=== PATIENT | female | born 1975 | race Caucasian/White ===

== ENCOUNTER 2018-01-17 01:14 | Observation (INO) ==
[2018-01-17] MEDS ORDERED: 0.9 % Sodium Chloride 1,000 ML IVC ONE (01:44)
[2018-01-17] MEDS ORDERED: methylPREDNISolone 125 MG/2 ML VIAL IVP ONE ×2 (01:44→08:21)
[2018-01-17] MEDS ORDERED: Ipratropium/Albuterol Neb 3 ML IH ONE ×2 (01:44→06:51)
--- NOTE | 2018-01-17 02:02 | Emergency Department Note ---
Disposition Clinical Impression: Acute exacerbation of chronic obstructive pulmonary disease (COPD), Hypoxia Disposition: Admitted As Inpatient Condition: Fair Referrals: Mary Erickson CNP [Primary Care Provider] - Forms: ED Satisfaction Letter Time of Disposition: 07:04 SOB HPI - General Chief Complaint: ED Upper Respiratory Infection Stated Complaint: Dyspnea, cough, fever onset 2 days Time Seen by Provider: 01/17/18 01:40 Source: patient, EMS Mode of arrival: EMS Limitations: no limitations Nursing Notes Reviewed: Yes Vital Signs Reviewed: Yes - History of Present Illness Pt Subjective Complaint: shortness of breath, cough Onset (ago): day(s) (4 days) Severity: severe Consistency/Duration: constant, gradually worsening Improves with: nothing Worsens with: exertion, coughing Known history of: COPD, other (Continues to smoke) Associated symptoms: Reports: fever (Subjective, has not checked with a thermometer), wheezing, sputum production (Minimal yellow sputum) Treatment prior to arrival: bronchodilator Cough present: Yes Cough Description: Involuntary Cough Frequency: Intermittent Sputum production: Yes Sputum Amount: Scant - Related Data Home oxygen amount: none Home Medications Medication Instructions Recorded Confirmed Megestrol Acetate [Megace] 5 ml PO BID 09/07/15 01/17/18 Albuterol Neb [Proventil Neb] 2.5 mg IH Q4HR PRN 01/17/18 01/17/18 Albuterol Sulfate [Albuterol 1 puff IH Q6H PRN 01/17/18 01/17/18 Inhaler] Azathioprine [Imuran] 50 mg PO DAILY 01/17/18 01/17/18 Beclomethasone Diprop 80mcg [Qvar 1 puff IH DAILY 01/17/18 01/17/18 80 mcg] Beclomethasone Diprop 80mcg [Qvar 1 puff IH DAILY 01/17/18 01/17/18 80 mcg] Trospium Chloride 20 mg PO HS 01/17/18 01/17/18 Allergies Allergy/AdvReac Type Severity Reaction Status Date / Time Paroxetine [From Paxil] AdvReac Swelling Verified 01/17/18 03:03 of Lip/Tongue/Throat All systems ED: reviewed and negative except as stated. Constitutional: Reports: fever, chills ENT ED: Reports: congestion. Denies: ear pain, throat pain Cardiovascular: Denies: chest pain, palpitations Respiratory: Reports: cough, dyspnea, wheezes Gastrointestinal: Denies: abdominal pain, nausea, vomiting Musculoskeletal: Denies: back pain Integumentary: Denies: rash Neurological: Denies: headache Past Medical History - Past Medical History Attestation: Yes The following information was validated with the patient. Source: patient, old records reviewed, nursing notes reviewed Medical history: Reports: GERD, COPD Psychiatric history: Reports: anxiety, depression - Social History Smoking Status: Current every day smoker Smokeless Tobacco Status: No Alcohol use: Reports: none Drug use: Reports: none Physical Exam - General Limitations: no limitations General appearance: alert, in no apparent distress - Head Head exam: atraumatic, normocephalic, normal inspection - Eye Eye exam: Present: normal appearance, PERRL, EOMI. Absent: scleral icterus, conjunctival injection - ENT ENT exam: normal exam, normal oropharynx, mucous membranes moist, TM's normal bilaterally, normal external ear exam - Neck Neck exam: Present: normal inspection, full ROM, trachea midline. Absent: meningismus - Chest Chest inspection: Present: normal inspection, symmetric chest wall rise. Absent : tenderness - Respiratory Respiratory exam: Present: respiratory distress (Tachypneic with frequent cough) , wheezes (Throughout both lung jha) - Cardiovascular Cardiovascular exam: Present: normal rhythm, tachycardia, normal heart sounds - Abdominal Exam Abdominal exam: Present: soft, Non-Tender, normal bowel sounds - Extremities Exam Extremities exam: Present: normal inspection. Absent: pedal edema, calf tenderness - Neurological Exam Neurological exam: Present: alert, oriented X3 - Psychiatric Psychiatric exam: Present: normal affect, normal mood - Skin Skin exam: Present: warm, dry. Absent: rash Course Course Narrative: Patient presents with shortness of breath and cough. She has history of COPD and continues to smoke. This looks like a COPD exacerbation. We will do a chest x-ray to make sure there is really is not a pneumonia. I ordered breathing treatments and steroids and fluids. Disposition will be based on diagnostic results and reevaluation. - Reevaluation(s) Reevaluation #1: Labs look good and chest x-ray was clear. ABG showed a low PO2 despite patient being on supplemental oxygen. We have monitored her for couple of hours the emergency department and she continues to cough and has the oxygen requirement and therefore that she is going need to be admitted to the hospital. I have given her antibiotics and steroids and went to give her some more DuoNeb treatments. Hospitalist has been paged. Time: 07:02 - Consultations Consultation #1: Dr. Sánchez, hospitalist - I discussed the case with the hospitalist. We discussed the presentation and emergency department course and diagnostic results. He accepted the patient for admission to the hospital. Time: 07:24 Vital Signs O2 Sat by Pulse Oximetry 92 01/17/18 01:15 Temperature 99.5 F 01/17/18 03:45 Pulse Rate 111 01/17/18 07:07 Respiratory Rate 20 01/17/18 07:07 Blood Pressure 120/70 01/17/18 07:07 O2 Sat by Pulse Oximetry 95 01/17/18 07:07 Oxygen Delivery Oxygen Delivery Nasal Cannula Shortness of Breath/Dyspnea - Medical Records Medical records reviewed: Yes I reviewed the patient's medical records. - Lab Data Lab results reviewed: Yes I reviewed the patient's lab results. Result diagrams: 01/17/18 02:09 01/17/18 02:09 Lab Results 01/17/18 01/17/18 01/17/18 Range/Units 02:09 02:09 02:09 WBC 12.4 H (4.3-11.1) K/mcL RBC 4.36 (3.82-4.97) M/mcL Hgb 14.9 (11.5-15.4) g/dL Hct 44.4 (35.3-44.9) % MCV 101.8 H (83.0-100.0) fL MCH 34.2 H (28.0-33.3) pg MCHC 33.6 (31.6-35.5) g/dL RDW 14.9 H (11.5-14.5) % Plt Count 148 (140-400) K/mcL MPV 11.7 (9.4-12.4) fL Immature Gran % 0.5 (0-4) % Seg Neutrophils % 87.5 % Lymphocytes % 5.0 % Monocytes % 6.4 % Eosinophils % 0.2 % Basophils % 0.4 % Neutrophils # 10.9 H (1.6-8.9) K/mcL Lymphocytes # 0.6 (0.6-4.6) K/mcL Monocytes # 0.8 (0.0-1.3) K/mcL Eosinophils # 0.0 (0.0-0.6) K/mcL Basophils # 0.1 (0.0-0.2) K/mcL Platelet Estimate Normal (Normal) Anisocytosis 1+ A (Not Present) PT 13.4 H (9.4-12.1) Seconds INR 1.2 APTT 26.8 (26.0-36.0) Seconds D-Dimer 314 (0-500) ng/mLFEU Sample Site ABG pH (7.32-7.45) pH Units ABG pCO2 (35-45) mmHg ABG pO2 (85-104) mmHg ABG HCO3 (21-27) mEq/L ABG Total CO2 (20-26) mEq/L ABG O2 Saturation (95-98) % ABG Base Excess (-2 to 3) mEq/L Lam Test O2 Delivery Device Inspired O2 (1-15=lpm [id number]=%) Sodium 133 L (136-145) mEq/L Potassium 3.7 (3.5-5.1) mEq/L Chloride 101 (98-107) mEq/L Carbon Dioxide 23 (23-29) mEq/L BUN 7 (6-20) mg/dL Creatinine 0.61 (0.60-1.20) mg/dL Est GFR ( Amer) > 60 (> 60) Est GFR (Non-Af Amer) > 60 (> 60) BUN/Creatinine Ratio 11 (6-26) Glucose 113 H (70-105) mg/dL Calculated Osmolality 275 L (280-300) Calcium 9.6 (8.6-10.3) mg/dL Troponin I (< 0.04) ng/mL 01/17/18 01/17/18 Range/Units 02:09 03:16 WBC (4.3-11.1) K/mcL RBC (3.82-4.97) M/mcL Hgb (11.5-15.4) g/dL Hct (35.3-44.9) % MCV (83.0-100.0) fL MCH (28.0-33.3) pg MCHC (31.6-35.5) g/dL RDW (11.5-14.5) % Plt Count (140-400) K/mcL MPV (9.4-12.4) fL Immature Gran % (0-4) % Seg Neutrophils % % Lymphocytes % % Monocytes % % Eosinophils % % Basophils % % Neutrophils # (1.6-8.9) K/mcL Lymphocytes # (0.6-4.6) K/mcL Monocytes # (0.0-1.3) K/mcL Eosinophils # (0.0-0.6) K/mcL Basophils # (0.0-0.2) K/mcL Platelet Estimate (Normal) Anisocytosis (Not Present) PT (9.4-12.1) Seconds INR APTT (26.0-36.0) Seconds D-Dimer (0-500) ng/mLFEU Sample Site R Radial ABG pH 7.40 (7.32-7.45) pH Units ABG pCO2 30 L (35-45) mmHg ABG pO2 63 L (85-104) mmHg ABG HCO3 19 L (21-27) mEq/L ABG Total CO2 20 (20-26) mEq/L ABG O2 Saturation 92 L (95-98) % ABG Base Excess -5 L (-2 to 3) mEq/L Lam Test Positive O2 Delivery Device Cannula Inspired O2 2.0 (1-15=lpm [id number]=%) Sodium (136-145) mEq/L Potassium (3.5-5.1) mEq/L Chloride (98-107) mEq/L Carbon Dioxide (23-29) mEq/L BUN (6-20) mg/dL Creatinine (0.60-1.20) mg/dL Est GFR ( Amer) (> 60) Est GFR (Non-Af Amer) (> 60) BUN/Creatinine Ratio (6-26) Glucose (70-105) mg/dL Calculated Osmolality (280-300) Calcium (8.6-10.3) mg/dL Troponin I < 0.03 (< 0.04) ng/mL - Radiology Data Radiology results reviewed: Yes I reviewed the patient's radiology results. - EKG Data EKG attestation: Yes I reviewed and interpreted this EKG. EKG results narrative: Twelve-lead EKG performed at 1:22 AM shows a sinus tachycardia at a rate of 120. The computer is reading it as SVT but is actually sinus tachycardia. Normal axis. Good R-wave progression across the precordium. No acute ischemic changes. There is an incomplete right bundle branch block, otherwise intervals are normal.
[2018-01-17 02:27] LABS: Basophils # 0.1 K/mcL (0.0-0.2); Basophils % 0.4 %; Eosinophils % 0.2 %; Hematocrit 44.4 % (35.3-44.9); Hemoglobin 14.9 g/dL (11.5-15.4); Immature Granulocytes % 0.5 % (0-4); Lymphocytes # 0.6 K/mcL (0.6-4.6); Mean Corpuscular HGB Conc 33.6 g/dL (31.6-35.5); Mean Corpuscular Hemoglobin 34.2 pg (28.0-33.3); Mean Corpuscular Volume 101.8 fL (83.0-100.0); Mean Platelet Volume 11.7 fL (9.4-12.4); Monocytes # 0.8 K/mcL (0.0-1.3); Monocytes % 6.4 %; Neutrophils # 10.9 K/mcL (1.6-8.9); Platelet Count 148 K/mcL (140-400); Red Blood Count 4.36 M/mcL (3.82-4.97); Red Cell Distribution Width 14.9 % (11.5-14.5); Segmented Neutrophils % 87.5 %
[2018-01-17 02:42] LABS: BUN/Creatinine Ratio 11 (6-26); Blood Urea Nitrogen 7 mg/dL (6-20); Calcium 9.6 mg/dL (8.6-10.3); Carbon Dioxide 23 mEq/L (23-29); Chloride 101 mEq/L (98-107); Glucose 113 mg/dL (70-105); Osmolality,Calculated 275 (280-300); Potassium 3.7 mEq/L (3.5-5.1); Sodium 133 mEq/L (136-145); eGFR For African Americans > 60 (> 60); eGFR For Non-African Americans > 60 (> 60)
[2018-01-17 02:56] LABS: INR 1.2; Prothrombin Time 13.4 Seconds (9.4-12.1)
[2018-01-17] MEDS ORDERED: Levofloxacin 750 MG/150 ML 750 MG/150 ML BAG IVPB ONE (02:56)
[2018-01-17] MEDS ORDERED: Ketorolac 30 MG/ML VIAL IVP ONE (02:56)
[2018-01-17 02:58] LABS: Activated Partial Thrombo Time 26.8 Seconds (26.0-36.0)
[2018-01-17 03:07] LABS: Anisocytosis 1+ (Not Present); Platelet Estimate Normal (Normal)
[2018-01-17 03:22] LABS: ABG Base Excess -5 mEq/L (-2 to 3); ABG HCO3 19 mEq/L (21-27); ABG Oxygen Saturation 92 % (95-98); ABG PCO2 30 mmHg (35-45); ABG PO2 63 mmHg (85-104); ABG TCO2 20 mEq/L (20-26)
[2018-01-17] MEDS ORDERED: MethylPREDNISolone 40 MG/ML VIAL IVP ONE (07:08)
[2018-01-17] MEDS ORDERED: 0.9 % Sodium Chloride 1,000 ML IVC SCH ×2 (07:15→08:21)
[2018-01-17] MEDS ORDERED: Ipratropium/Albuterol Neb 3 ML IH SCH ×3 (08:00→12:00)
[2018-01-17] MEDS ORDERED: Naloxone 0.4 MG/ML INJ IVP PRN (08:21)
[2018-01-17] MEDS ORDERED: Megestrol Acetate 400 MG/10 ML UDC PO SCH (09:00)
[2018-01-17] MEDS: Megestrol Acetate 400 MG/10 ML UDC PO SCH ×2 (09:35→20:01)
--- NOTE | 2018-01-17 12:04 | Internal Med History&Physical ---
Date of Encounter: 01/17/18 Time of Encounter: 11:40 Assessment and Plan (1) Acute exacerbation of chronic obstructive pulmonary disease (COPD) Current visit: Yes Status: Acute She was given Levaquin and Solu-Medrol in emergency room. Will continue these and add lactobacillus. (2) Macrocytosis without anemia Current visit: Yes Status: Acute We will order B12, folate, and TSH. (3) Hypoxia Current visit: Yes Status: Acute We will check room air oximetry. Internal Medicine - H&P: HPI Chief complaint: Dyspnea Admitted From: Emergency Dept Plans for Post Hospital Care: Home History of present illness: Ms. Mcknight is a 42 year old female who came to emergency room stating she had onset of dyspnea approximately 3 days previously. She had cough productive of yellow sputum. She denies hemoptysis. She had back pain which she attributes to significant cough. She became more dyspneic the evening of January 16 so came to emergency room. She was evaluated and admitted to [facility] floor for ongoing care needs. Respiratory history is significant for having smoked since age 10 up to one half packs per day. She reports PFTs done approximately 2013 showed COPD. She does not use home oxygen. Past Med Surg Social Fam HX - Past Medical History Medical history: COPD, GERD, other Additional medical history: crohns Psychiatric history: anxiety, depression - Past Surgical History Additional surgical history: colon resection for crohns - Social History Smoking Status: Current every day smoker Smokeless Tobacco Status: No Alcohol use: none Drug use: none - Family History Mother Living Status: Age at : 65 Cause of : Breast Ca Hx Family Cancer: Yes (Breast) Hx Family Endocrine Disorder: Yes (DM) Father Living Status: Age at : 72 Cause of : prostate ca Hx Family Cancer: Yes (Prostate) Hx Family Endocrine Disorder: Yes (DM) Internal Medicine - H&P: Meds Megestrol Acetate [Megace] 5 ml PO BID 09/07/15 [History] Albuterol Neb [Proventil Neb] 2.5 mg IH Q4HR PRN 01/17/18 [History] Albuterol Sulfate [Albuterol Inhaler] 1 puff IH Q6H PRN 01/17/18 [History] Azathioprine [Imuran] 50 mg PO DAILY 01/17/18 [History] Beclomethasone Diprop 80mcg [Qvar 80 mcg] 1 puff IH DAILY 01/17/18 [History] Beclomethasone Diprop 80mcg [Qvar 80 mcg] 1 puff IH DAILY 01/17/18 [History] Trospium Chloride 20 mg PO HS 01/17/18 [History] 3 Allergy/AdvReac Type Severity Reaction Status Date / Time Paroxetine [From Paxil] AdvReac Swelling Verified 01/17/18 03:03 of Lip/Tongue/Throat All Systems PM: A 10-system review of systems was performed and is negative for pertinent findings except as documented above in the HPI. Review of systems: Gen.: She states her weight is stable the past few months Cardiovascular: She denies hypertension AL heart failure angina DVT or pulmonary embolus Respiratory: As per history of present illness GI: She was diagnosed with Crohn's disease approximately 2009. She reports a segmental small bowel resection approximately 6.5 inches with primary anastomosis. She follows with psychiatric lpn at [facility]. She denies disorders of her liver gallbladder or exocrine pancreas : She denies hematuria dysuria or kidney stones Neurologic: She denies large distribution strokes or seizures. Endocrine: She denies diabetes thyroid disease or hyperlipidemia Hematology/oncology: She denies blood disorders cancers or anemia Psychiatric: She has anxiety and depression but denies other mental health issues [place] skeletal: She has restless leg syndrome. She has back pain as per above. She denies gout or other bone joint or muscle disorders. - Constitutional Vitals: Temp Pulse Resp BP Pulse Ox 98.2 F 94 16 107/63 97 01/17/18 10:29 01/17/18 10:29 01/17/18 10:29 01/17/18 10:29 01/17/18 10:29 Exam: Gen.: She is a well-developed lean female who appears in no acute distress at present time HEENT: Head is atraumatic and normal cephalic. Eyes: EOMI. There is no scleral icterus. Mouth: Mucosa is moist. Neck: Supple and nontender. There is no thyromegaly or adenopathy noted. Heart: Regular without murmurs gallops or ectopics Lungs: No wheezes or crackles are heard. Abdomen: Soft and nontender. No masses or guarding are noted. Extremities: There is no cyanosis edema or clubbing noted. Dorsalis pedis posterior tibial pulses are 1-2 over 2 bilaterally. Neurologic: Mental status: She is talkative and a good historian. Cranial nerves: Smile is symmetric. Forehead wrinkles bilaterally. Tongue protrudes midline. EOMI. Motor: There is no pronator drift. Cerebellar: Finger to nose is intact bilaterally. Skin: Warm and dry Internal Med - H&P Results - Labs CBC & Chem 7: 01/17/18 02:09 01/17/18 02:09 - VTE Documentation of Mechanical Device: Graduated compression elastic hosiery
[2018-01-17] MEDS ORDERED: Albuterol 2.5 MG/3 ML NEBULIZER IH PRN (12:09)
[2018-01-17] MEDS: Budesonide/Formoterol 160/4.5 MDI IH SCH ×2 (12:42→21:47)
[2018-01-17] MEDS: Lactobacillus 1 EACH CAP.SPRINK PO SCH (20:02)
[2018-01-17] MEDS ORDERED: Budesonide/Formoterol 160/4.5 MDI IH SCH (22:00)
[2018-01-18] MEDS ORDERED: Levofloxacin 750 MG/150 ML 750 MG/150 ML BAG IVPB SCH ×2 (03:00)
[2018-01-18 04:57] LABS: Basophils % 0.2 %; Hematocrit 40.9 % (35.3-44.9); Hemoglobin 13.7 g/dL (11.5-15.4); Immature Granulocytes % 0.9 % (0-4); Lymphocytes % 5.4 %; Mean Corpuscular HGB Conc 33.5 g/dL (31.6-35.5); Mean Corpuscular Hemoglobin 34.2 pg (28.0-33.3); Mean Platelet Volume 9.9 fL (9.4-12.4); Monocytes # 1.9 K/mcL (0.0-1.3); Monocytes % 13.4 %; Neutrophils # 11.1 K/mcL (1.6-8.9); Platelet Count 214 K/mcL (140-400); Red Blood Count 4.01 M/mcL (3.82-4.97); Segmented Neutrophils % 80.1 %
[2018-01-18 05:07] LABS: Lymphocytes # 0.8 K/mcL (0.6-4.6)
[2018-01-18] MEDS: Lactobacillus 1 EACH CAP.SPRINK PO SCH (08:01)
[2018-01-18] MEDS: Megestrol Acetate 400 MG/10 ML UDC PO SCH (08:02)
[2018-01-18] MEDS: Budesonide/Formoterol 160/4.5 MDI IH SCH (10:36)
[2018-01-18 10:37] VITALS: BP 119/80
[2018-01-18 11:16] LABS: Folate 14.2 ng/mL (3.0-16.0)
--- NOTE | 2018-01-18 14:45 | Discharge Summary ---
Date of Encounter: 01/18/18 Time of Encounter: 14:35 - Discharge Diagnosis (1) Acute exacerbation of chronic obstructive pulmonary disease (COPD) Priority: Primary Status: Acute (2) Macrocytosis without anemia Priority: Secondary Status: Acute (3) Hypoxia Priority: Secondary Status: Acute Hospital course: Ms. Mcknight is a 42 year old female who came to emergency room stating she had onset of dyspnea approximately 3 days previously. She had cough productive of yellow sputum. She denies hemoptysis. She had back pain which she attributes to significant cough. She became more dyspneic the evening of January 16 so came to emergency room. She was evaluated and admitted to [facility] for ongoing care needs. Initial orders were written by the emergency room physician. I saw her on January 17 and performed a history and physical. She was given Levaquin and Solu- Medrol in emergency room. Lactobacillus was added. She remained afebrile during her hospital stay. She had clinical improvement and felt near her baseline breathing when I saw her on January 18. She felt stable for discharge home which I felt was reasonable. She will continue with antibiotic and probiotic for 5 additional days at discharge. Room air oximetry on 6 minute walk showed oxygen saturation decreasing to 87% after 1 minute. Supplemental oxygen was reapplied for patient's safety and comfort. She will be discharged home with oxygen at 2 L/m by nasal cannula 24/ with portable gas and concentrator. Discharge diagnosis is COPD with hypoxemia. Macrocytosis workup showed B12 low at 188. Folate was normal at 14.2 and TSH normal at 0.86. She will be given 1000 g B12 injection IM before discharge and will continue supplemental oral B12 at discharge. She will follow with Mary Erickson CNP within 1 week. I told the patient that recovery from bronchitis and discontinuing smoking might allow her lungs to improve enough so she would not require oxygen 24/7. - Time Spent with Patient Total time spent providing and/or coordinating discharge services: - Discharge Medications Prescriptions: Cyanocobalamin (B-12) [Vitamin B12] 1,000 mcg PO DAILY #30 tablet Lactobacillus [Culturelle] 1 each PO BID #10 cap.sprink levoFLOXacin [Levaquin] 500 mg PO DAILY #5 tablet Home Medications: Megestrol Acetate [Megace] 5 ml PO BID 09/07/15 [History] Albuterol Neb [Proventil Neb] 2.5 mg IH Q4HR PRN 01/17/18 [History] Albuterol Sulfate [Albuterol Inhaler] 1 puff IH Q6H PRN 01/17/18 [History] Azathioprine [Imuran] 50 mg PO DAILY 01/17/18 [History] Beclomethasone Diprop 80mcg [QVAR 80 mcg] 1 puff IH DAILY 01/17/18 [History] Beclomethasone Diprop 80mcg [QVAR 80 mcg] 1 puff IH DAILY 01/17/18 [History] Trospium Chloride 20 mg PO HS 01/17/18 [History] Cyanocobalamin (B-12) [Vitamin B12] 1,000 mcg PO DAILY #30 tablet 01/18/18 [Rx] Lactobacillus [Culturelle] 1 each PO BID #10 cap.sprink 01/18/18 [Rx] levoFLOXacin [Levaquin] 500 mg PO DAILY #5 tablet 01/18/18 [Rx] Allergies/Adverse Reactions: 3 Allergy/AdvReac Type Severity Reaction Status Date / Time Paroxetine [From Paxil] AdvReac Swelling Verified 01/17/18 03:03 of Lip/Tongue/Throat Date of admission: 01/17/18 08:10 Primary care physician: Mary Erickson Consults: 01/17/18 09:51 Consult to Rug Weaver [CONS] Routine Reason for SW Consult: Currently no home o2. May need on DC - Constitutional Vitals: Temp Pulse Resp BP Pulse Ox 98.2 F 82 18 119/80 94 01/18/18 10:26 01/18/18 10:26 01/18/18 10:36 01/18/18 10:26 01/18/18 10:36 - Patient Status Disposition: Home, Self-Care Condition: Fair Overall status at discharge: patient is progressing back to baseline - Discharge Instructions Follow Up With: Mary Erickson, CHRISTIANE [Primary Care Provider] - 1 week - Diet and Activity Activity: resume usual activities as tolerated, wear oxygen at all times Diet: advance to your usual diet - VTE Documentation of Mechanical Device: Graduated compression elastic hosiery
[2018-01-18] MEDS ORDERED: Cyanocobalamin (B-12) 1,000 MCG/ML VIAL IM ONE (14:52)
--- NOTE | 2018-01-20 06:46 | Electrocardiograph Report ---
[address] [place], [place] [address] Test Date: 2018-01-17 Pat Name: Jennifer Mcknight Department: 9201 Room: [facility] Gender: F Molding Manager: Andree : 1975 Requested By: Shashi Davis Order Number: [id number] Reading MD: Jain Saenz Measurements Intervals [place] Rate: 120 P: VT: 0 QRS: 61 QRSD: 92 T: 60 QT: 288 QTc: 359 Interpretive Statements SINUS TACHYCARDIA INDETERMINATE AXIS INCOMPLETE RIGHT BUNDLE BRANCH BLOCK Electronically Signed On 01-20-2018 6:44:53 EDT by Jian Saenz
--- NOTE | 2018-01-20 06:47 | Electrocardiograph Report ---
[address] [place], [place] [address] Test Date: 2018-01-17 Pat Name: Jennifer Mcknight Department: 9201 Room: [facility] Gender: F Card Hanger: Andree : 1975 Requested By: Shashi Davis Order Number: [id number] Reading MD: Jian Saenz Measurements Intervals [place] Rate: 119 P: [place]: 0 QRS: 79 QRSD: 98 T: 60 QT: 310 QTc: 381 Interpretive Statements SUPRAVENTRICULAR TACHYCARDIA INCOMPLETE RIGHT BUNDLE BRANCH BLOCK Electronically Signed On 01-20-2018 6:46:13 EDT by Jian Saenz
== END 2018-01-18 17:08 | disposition home or self-care (01) ==
LOC: EMEROOPIK 01:14 → INPPIK 01:14
PROVIDERS: ADMIT Internal Medicine; ATTEND Internal Medicine

== ENCOUNTER 2019-12-11 20:15 | Observation (INO) ==
[2019-12-11] MEDS ORDERED: Ipratropium/Albuterol Neb 3 ML IH ONE (20:24)
[2019-12-11 21:18] LABS: Basophils # 0.1 K/mcL (0.0-0.2); Basophils % 0.7 %; Eosinophils # 0.3 K/mcL (0.0-0.6); Eosinophils % 4.3 %; Hematocrit 46.2 % (35.3-44.9); Hemoglobin 15.6 g/dL (11.5-15.4); Immature Granulocytes % 0.3 % (0-4); Lymphocytes # 2.3 K/mcL (0.6-4.6); Lymphocytes % 34.5 %; Mean Corpuscular HGB Conc 33.8 g/dL (31.6-35.5); Mean Corpuscular Hemoglobin 33.2 pg (28.0-33.3); Mean Corpuscular Volume 98.3 fL (83.0-100.0); Mean Platelet Volume 10.9 fL (9.4-12.4); Monocytes # 0.9 K/mcL (0.0-1.3); Monocytes % 13.5 %; Neutrophils # 3.2 K/mcL (1.6-8.9); Platelet Count 215 K/mcL (140-400); Red Cell Distribution Width 14.2 % (11.5-14.5); Segmented Neutrophils % 46.7 %; White Blood Count 6.8 K/mcL (4.3-11.1)
[2019-12-11 21:22] LABS: Prothrombin Time 11.5 Seconds (9.4-12.1)
[2019-12-11 21:31] LABS: Alanine Aminotransferase 48 Units/L (7-52); Albumin 4.3 g/dL (3.5-5.7); Albumin/Globulin Ratio 1.7 (1.1-2.2); Alkaline Phosphatase 56 Units/L (34-104); Aspartate Amino Transferase 25 Units/L (13-39); BUN/Creatinine Ratio 21 (6-26); Bilirubin,Total 0.2 mg/dL (0.3-1.0); Blood Urea Nitrogen 14 mg/dL (6-20); Calcium 9.4 mg/dL (8.6-10.3); Carbon Dioxide 29 mEq/L (23-29); Chloride 103 mEq/L (98-107); Globulin 2.5 g/dL (2.4-3.5); Glucose 94 mg/dL (70-105); Osmolality,Calculated 292 (280-300); Potassium 3.6 mEq/L (3.5-5.1); Sodium 141 mEq/L (136-145); Total Protein 6.8 g/dL (6.4-8.9); eGFR For African Americans > 60 (> 60); eGFR For Non-African Americans > 60 (> 60)
[2019-12-11 21:33] LABS: Troponin I < 0.03 ng/mL (< 0.04)
[2019-12-11] MEDS ORDERED: methylPREDNISolone 125 MG/2 ML VIAL IVP ONE (21:47)
[2019-12-11] MEDS ORDERED: cefTRIAXone 1,000 MG in 0.9 % Sodium Chloride Mini Bag 100 ML IVPB ONE (21:47)
[2019-12-11] MEDS ORDERED: Azithromycin 500 MG in 0.9 % Sodium Chloride 250 ML IVPB ONE (21:47)
[2019-12-11] MEDS ORDERED: Ketorolac 30 MG/ML VIAL IVP ONE (22:36)
[2019-12-11] MEDS ORDERED: Naloxone 0.4 MG/ML INJ IVP PRN (23:05)
[2019-12-12] MEDS: Ipratropium/Albuterol Neb 3 ML IH SCH ×6 (00:50→20:30)
[2019-12-12 05:40] LABS: Basophils % 0.3 %; Eosinophils % 0.2 %; Hematocrit 45.2 % (35.3-44.9); Hemoglobin 15.2 g/dL (11.5-15.4); Immature Granulocytes % 0.5 % (0-4); Lymphocytes # 0.5 K/mcL (0.6-4.6); Lymphocytes % 8.8 %; Mean Corpuscular HGB Conc 33.6 g/dL (31.6-35.5); Mean Corpuscular Volume 98.3 fL (83.0-100.0); Mean Platelet Volume 10.3 fL (9.4-12.4); Monocytes # 0.1 K/mcL (0.0-1.3); Neutrophils # 5.5 K/mcL (1.6-8.9); Platelet Count 203 K/mcL (140-400); Red Cell Distribution Width 14.2 % (11.5-14.5); Segmented Neutrophils % 89.2 %; White Blood Count 6.1 K/mcL (4.3-11.1)
[2019-12-12 05:59] LABS: BUN/Creatinine Ratio 22 (6-26); Blood Urea Nitrogen 13 mg/dL (6-20); Calcium 9.1 mg/dL (8.6-10.3); Carbon Dioxide 26 mEq/L (23-29); Chloride 104 mEq/L (98-107); Glucose 158 mg/dL (70-105); Osmolality,Calculated 295 (280-300); Sodium 141 mEq/L (136-145); eGFR For African Americans > 60 (> 60); eGFR For Non-African Americans > 60 (> 60)
[2019-12-12] MEDS ORDERED: Nicotine 14 MG PATCH.TD24 TD SCH (07:45)
[2019-12-12] MEDS ORDERED: Tiotropium 18 MCG inhalation IH SCH (09:00)
[2019-12-12] MEDS ORDERED: Megestrol Acetate 400 MG/10 ML UDC PO SCH (09:00)
[2019-12-12] MEDS: MethylPREDNISolone 40 MG/ML VIAL IVP SCH ×3 (09:33→23:35)
[2019-12-12] MEDS: Colchicine 0.6 MG TABLET PO SCH ×2 (09:49→20:47)
[2019-12-12] MEDS ORDERED: Nitroglycerin 0.4 MG TAB.SUBL SL PRN (13:10)
[2019-12-12] MEDS: Ibuprofen 800 MG TABLET PO SCH ×2 (16:19→23:35)
[2019-12-13] MEDS: Ipratropium/Albuterol Neb 3 ML IH SCH ×4 (00:41→12:00)
[2019-12-13 07:07] VITALS: BP 120/73
[2019-12-13 07:43] LABS: Basophils % 0.1 %; Hematocrit 40.9 % (35.3-44.9); Hemoglobin 13.7 g/dL (11.5-15.4); Immature Granulocytes % 0.6 % (0-4); Lymphocytes # 0.7 K/mcL (0.6-4.6); Lymphocytes % 3.4 %; Mean Corpuscular HGB Conc 33.5 g/dL (31.6-35.5); Mean Corpuscular Hemoglobin 33.3 pg (28.0-33.3); Mean Corpuscular Volume 99.3 fL (83.0-100.0); Mean Platelet Volume 10.3 fL (9.4-12.4); Monocytes # 1.1 K/mcL (0.0-1.3); Monocytes % 5.5 %; Neutrophils # 18.1 K/mcL (1.6-8.9); Platelet Count 212 K/mcL (140-400); Red Blood Count 4.12 M/mcL (3.82-4.97); Red Cell Distribution Width 14.5 % (11.5-14.5); Segmented Neutrophils % 90.4 %
[2019-12-13 07:55] LABS: BUN/Creatinine Ratio 32 (6-26); Blood Urea Nitrogen 17 mg/dL (6-20); Carbon Dioxide 27 mEq/L (23-29); Chloride 107 mEq/L (98-107); Glucose 139 mg/dL (70-105); Osmolality,Calculated 292 (280-300); Potassium 4.8 mEq/L (3.5-5.1); Sodium 139 mEq/L (136-145); eGFR For African Americans > 60 (> 60); eGFR For Non-African Americans > 60 (> 60)
[2019-12-13 08:21] LABS: Albumin 3.7 g/dL (3.5-5.7); Albumin/Globulin Ratio 1.7 (1.1-2.2); Bilirubin,Indirect 0.2 mg/dL (0.0-1.0); Bilirubin,Total 0.2 mg/dL (0.3-1.0); Chol/HDL Ratio 2.4 (0-4.9); Globulin 2.2 g/dL (2.4-3.5); Total Protein 5.9 g/dL (6.4-8.9)
[2019-12-13] MEDS: Ibuprofen 800 MG TABLET PO SCH (09:06)
[2019-12-13] MEDS: MethylPREDNISolone 40 MG/ML VIAL IVP SCH (09:07)
[2019-12-13] MEDS: Colchicine 0.6 MG TABLET PO SCH (09:07)
== END 2019-12-13 11:35 | disposition home or self-care (01) ==
LOC: EMEROOPIK 20:15 → INPPIK 20:15
PROVIDERS: ADMIT Student in an Organized Health Care Education/Training Program; ATTEND Student in an Organized Health Care Education/Training Program

== ENCOUNTER 2020-02-09 20:28 | Observation (INO) ==
[2020-02-09] MEDS ORDERED: methylPREDNISolone 125 MG/2 ML VIAL IVP ONE (20:36)
[2020-02-09] MEDS ORDERED: Ipratropium/Albuterol Neb 3 ML IH ONE (20:36)
[2020-02-09 20:54] LABS: Basophils # 0.1 K/mcL (0.0-0.2); Basophils % 0.4 %; Eosinophils # 0.2 K/mcL (0.0-0.6); Eosinophils % 1.4 %; Hematocrit 44.8 % (35.3-44.9); Hemoglobin 14.6 g/dL (11.5-15.4); Immature Granulocytes % 0.5 % (0-4); Lymphocytes # 2.7 K/mcL (0.6-4.6); Lymphocytes % 16.3 %; Mean Corpuscular HGB Conc 32.6 g/dL (31.6-35.5); Mean Corpuscular Hemoglobin 32.2 pg (28.0-33.3); Mean Corpuscular Volume 98.7 fL (83.0-100.0); Mean Platelet Volume 9.6 fL (9.4-12.4); Monocytes # 2.3 K/mcL (0.0-1.3); Monocytes % 13.6 %; Neutrophils # 11.3 K/mcL (1.6-8.9); Platelet Count 269 K/mcL (140-400); Red Blood Count 4.54 M/mcL (3.82-4.97); Red Cell Distribution Width 14.1 % (11.5-14.5); Segmented Neutrophils % 67.8 %; White Blood Count 16.7 K/mcL (4.3-11.1)
[2020-02-09 21:06] LABS: INR 1.1; Prothrombin Time 12.3 Seconds (9.4-12.1)
[2020-02-09 21:17] LABS: Troponin I < 0.03 ng/mL (< 0.04)
[2020-02-09 21:18] LABS: Alanine Aminotransferase 11 Units/L (7-52); Albumin 3.9 g/dL (3.5-5.7); Albumin/Globulin Ratio 1.2 (1.1-2.2); Alkaline Phosphatase 49 Units/L (34-104); Aspartate Amino Transferase 11 Units/L (13-39); BUN/Creatinine Ratio 12 (6-26); Bilirubin,Total 0.5 mg/dL (0.3-1.0); Blood Urea Nitrogen 6 mg/dL (6-20); Calcium 9.5 mg/dL (8.6-10.3); Carbon Dioxide 28 mEq/L (23-29); Chloride 101 mEq/L (98-107); Globulin 3.2 g/dL (2.4-3.5); Glucose 94 mg/dL (70-105); Magnesium 1.7 mg/dL (1.6-2.6); Osmolality,Calculated 287 (280-300); Potassium 3.8 mEq/L (3.5-5.1); Sodium 140 mEq/L (136-145); Total Protein 7.1 g/dL (6.4-8.9); eGFR For African Americans > 60 (> 60); eGFR For Non-African Americans > 60 (> 60)
[2020-02-09] MEDS ORDERED: cefTRIAXone 1,000 MG in 0.9 % Sodium Chloride Mini Bag 100 ML IVPB ONE (21:49)
[2020-02-09] MEDS ORDERED: Ketorolac 30 MG/ML VIAL IVP ONE (21:49)
[2020-02-09] MEDS ORDERED: Ondansetron 4 MG/2 ML VIAL IVP PRN (23:29)
[2020-02-09] MEDS ORDERED: Naloxone 0.4 MG/ML INJ IVP PRN (23:29)
[2020-02-10 00:25] LABS: Hematocrit 42.9 % (35.3-44.9); Hemoglobin 14.2 g/dL (11.5-15.4); Mean Corpuscular HGB Conc 33.1 g/dL (31.6-35.5); Mean Corpuscular Hemoglobin 32.5 pg (28.0-33.3); Mean Corpuscular Volume 98.2 fL (83.0-100.0); Mean Platelet Volume 9.8 fL (9.4-12.4); Platelet Count 256 K/mcL (140-400); Red Blood Count 4.37 M/mcL (3.82-4.97); White Blood Count 16.8 K/mcL (4.3-11.1)
[2020-02-10] MEDS: 0.9 % Sodium Chloride 1,000 ML IVC SCH ×2 (00:43→14:43)
[2020-02-10] MEDS: Ipratropium/Albuterol Neb 3 ML IH SCH ×8 (01:10→23:10)
[2020-02-10] MEDS: Tiotropium 18 MCG inhalation IH SCH (07:35)
[2020-02-10 07:51] LABS: BUN/Creatinine Ratio 18 (6-26); Blood Urea Nitrogen 11 mg/dL (6-20); Calcium 8.8 mg/dL (8.6-10.3); Carbon Dioxide 27 mEq/L (23-29); Chloride 102 mEq/L (98-107); Glucose 182 mg/dL (70-105); Osmolality,Calculated 288 (280-300); Potassium 4.4 mEq/L (3.5-5.1); Sodium 137 mEq/L (136-145); eGFR For African Americans > 60 (> 60); eGFR For Non-African Americans > 60 (> 60)
[2020-02-10] MEDS: Metoprolol XL (24 HR) Succ 25 MG TAB.ER.24H PO SCH (08:59)
[2020-02-10] MEDS: Megestrol Acetate 400 MG/10 ML UDC PO SCH ×2 (08:59→21:10)
[2020-02-10] MEDS: methylPREDNISolone 125 MG/2 ML VIAL IVP SCH ×3 (09:00→23:55)
[2020-02-10] MEDS: levoFLOXacin 500 MG/100 ML 500 MG/100 ML BAG IVPB SCH (09:01)
[2020-02-11] MEDS: Ipratropium/Albuterol Neb 3 ML IH SCH ×4 (04:36→16:58)
[2020-02-11] MEDS: Tiotropium 18 MCG inhalation IH SCH (08:28)
[2020-02-11] MEDS: Metoprolol XL (24 HR) Succ 25 MG TAB.ER.24H PO SCH (08:45)
[2020-02-11] MEDS: Megestrol Acetate 400 MG/10 ML UDC PO SCH (08:45)
[2020-02-11] MEDS: levoFLOXacin 500 MG/100 ML 500 MG/100 ML BAG IVPB SCH (08:45)
[2020-02-11] MEDS: methylPREDNISolone 125 MG/2 ML VIAL IVP SCH (08:46)
[2020-02-11 08:53] LABS: Hematocrit 37.4 % (35.3-44.9); Hemoglobin 12.1 g/dL (11.5-15.4); Mean Corpuscular HGB Conc 32.4 g/dL (31.6-35.5); Mean Corpuscular Hemoglobin 32.6 pg (28.0-33.3); Mean Corpuscular Volume 100.8 fL (83.0-100.0); Mean Platelet Volume 10.6 fL (9.4-12.4); Platelet Count 244 K/mcL (140-400); Red Blood Count 3.71 M/mcL (3.82-4.97); Red Cell Distribution Width 13.4 % (11.5-14.5)
[2020-02-11 09:24] LABS: Alanine Aminotransferase 12 Units/L (7-52); Albumin 3.2 g/dL (3.5-5.7); Albumin/Globulin Ratio 1.2 (1.1-2.2); Alkaline Phosphatase 42 Units/L (34-104); Aspartate Amino Transferase 11 Units/L (13-39); BUN/Creatinine Ratio 22 (6-26); Bilirubin,Total 0.3 mg/dL (0.3-1.0); Blood Urea Nitrogen 10 mg/dL (6-20); Calcium 8.9 mg/dL (8.6-10.3); Carbon Dioxide 27 mEq/L (23-29); Chloride 102 mEq/L (98-107); Chol/HDL Ratio 2.2 (0-4.9); Cholesterol 98 mg/dL (< 200); Globulin 2.6 g/dL (2.4-3.5); Glucose 118 mg/dL (70-105); HDL Cholesterol 45 mg/dL (40-59); LDL Cholesterol,Calculated 42 mg/dL (< 100); Osmolality,Calculated 286 (280-300); Potassium 4.4 mEq/L (3.5-5.1); Sodium 138 mEq/L (136-145); Total Protein 5.8 g/dL (6.4-8.9); Triglycerides 53 mg/dL (< 150); eGFR For African Americans > 60 (> 60); eGFR For Non-African Americans > 60 (> 60)
[2020-02-11 10:37] VITALS: BP 96/62
[2020-02-11 10:54] LABS: Bilirubin,Urine Negative (Negative); Blood,Urine Trace-intact (Negative); Clarity,Urine Clear (Clear); Color,Urine Yellow (Yellow); Glucose,Urine (UA) Normal (Normal); Ketones,Urine Negative (Negative); Leukocyte Esterase,Urine Negative (Negative); Nitrite,Urine Negative (Negative); PH,Urine 6.5 pH Units (5.0-8.0); Protein,Urine Negative (Neg-Trace); Urobilinogen,Urine Normal (Normal)
[2020-02-11 11:10] LABS: RBC,Urine 0-3 per hpf (0-3); Squamous Epithelial Cell,Urine Few per hpf (None-Few); WBC,Urine 0-3 per hpf (0-3)
== END 2020-02-11 14:35 | disposition home or self-care (01) ==
LOC: INPPIK 20:28 → EMEROOPIK 20:28 → INPPIK 23:10
PROVIDERS: ADMIT Family Medicine; ATTEND Family Medicine

== ENCOUNTER 2020-03-01 00:48 | Observation (INO) ==
[2020-03-01] MEDS ORDERED: Aspirin 81 MG TAB.CHEW PO ONE (00:59)
[2020-03-01] MEDS ORDERED: 0.9 % Sodium Chloride 1,000 ML IVC SCH (01:00)
[2020-03-01] MEDS ORDERED: Ipratropium/Albuterol Neb 3 ML IH ONE (01:17)
[2020-03-01 01:38] LABS: Basophils % 0.2 %; Eosinophils # 0.1 K/mcL (0.0-0.6); Eosinophils % 1.1 %; Hematocrit 37.3 % (35.3-44.9); Hemoglobin 12.3 g/dL (11.5-15.4); Immature Granulocytes % 0.4 % (0-4); Lymphocytes # 1.8 K/mcL (0.6-4.6); Lymphocytes % 15.8 %; Mean Corpuscular Hemoglobin 32.7 pg (28.0-33.3); Mean Corpuscular Volume 99.2 fL (83.0-100.0); Mean Platelet Volume 9.6 fL (9.4-12.4); Monocytes # 1.2 K/mcL (0.0-1.3); Monocytes % 10.7 %; Platelet Count 272 K/mcL (140-400); Red Blood Count 3.76 M/mcL (3.82-4.97); Red Cell Distribution Width 13.4 % (11.5-14.5); Segmented Neutrophils % 71.8 %; White Blood Count 11.6 K/mcL (4.3-11.1)
[2020-03-01 01:42] LABS: INR 1.2; Neutrophils # 8.3 K/mcL (1.6-8.9); Prothrombin Time 13.1 Seconds (9.4-12.1)
[2020-03-01 01:45] LABS: Activated Partial Thrombo Time 40.5 Seconds (26.0-36.0)
[2020-03-01] MEDS ORDERED: *HR* OxyCODONE Immed Rel 5 MG TABLET PO ONE (01:53)
[2020-03-01 01:55] LABS: Troponin I < 0.03 ng/mL (< 0.04)
[2020-03-01 01:56] LABS: Alanine Aminotransferase 13 Units/L (7-52); Albumin 4.2 g/dL (3.5-5.7); Albumin/Globulin Ratio 1.3 (1.1-2.2); Alkaline Phosphatase 56 Units/L (34-104); Aspartate Amino Transferase 15 Units/L (13-39); BUN/Creatinine Ratio 23 (6-26); Bilirubin,Total 0.4 mg/dL (0.3-1.0); Blood Urea Nitrogen 12 mg/dL (6-20); Calcium 9.6 mg/dL (8.6-10.3); Carbon Dioxide 30 mEq/L (23-29); Chloride 102 mEq/L (98-107); Globulin 3.2 g/dL (2.4-3.5); Glucose 106 mg/dL (70-105); Osmolality,Calculated 294 (280-300); Potassium 3.6 mEq/L (3.5-5.1); Sodium 142 mEq/L (136-145); Total Protein 7.4 g/dL (6.4-8.9); eGFR For African Americans > 60 (> 60); eGFR For Non-African Americans > 60 (> 60)
[2020-03-01] MEDS ORDERED: levoFLOXacin 500 MG/100 ML 500 MG/100 ML BAG IVPB ONE (02:39)
[2020-03-01] MEDS ORDERED: methylPREDNISolone 125 MG/2 ML VIAL IVP ONE (02:39)
[2020-03-01] MEDS ORDERED: MEDROXYPROGESTERONE ACETATE 150 MG IM SCH (03:31)
[2020-03-01] MEDS ORDERED: Naloxone 0.4 MG/ML INJ IVP PRN (03:31)
[2020-03-01] MEDS ORDERED: *HR* HYDROcodone/Acet 5/325 mg TABLET PO PRN (03:31)
[2020-03-01] MEDS ORDERED: Albuterol Neb 0.63 MG/3 ML VIAL IH PRN (03:31)
[2020-03-01] MEDS: 0.9 % Sodium Chloride 1,000 ML IVC SCH ×3 (04:25→17:50)
[2020-03-01] MEDS: Ipratropium/Albuterol Neb 3 ML IH SCH ×4 (04:56→22:00)
[2020-03-01] MEDS: Aspirin Enteric Coated 81 MG Tablet PO SCH (08:53)
[2020-03-01] MEDS: Metoprolol XL (24 HR) Succ 25 MG TAB.ER.24H PO SCH (08:54)
[2020-03-01] MEDS: Megestrol Acetate 400 MG/10 ML UDC PO SCH ×2 (08:55→20:54)
[2020-03-01] MEDS ORDERED: Tiotropium 18 MCG inhalation IH SCH (09:00)
[2020-03-01] MEDS ORDERED: Albuterol 2.5 MG/3 ML NEBULIZER IH PRN (09:31)
[2020-03-01] MEDS: Nicotine 14 MG PATCH.TD24 TD SCH (10:09)
[2020-03-01] MEDS ORDERED: methylPREDNISolone 125 MG/2 ML VIAL IVP SCH (11:00)
[2020-03-01] MEDS: methylPREDNISolone 125 MG/2 ML VIAL IVP SCH (15:24)
[2020-03-02] MEDS: methylPREDNISolone 125 MG/2 ML VIAL IVP SCH (00:21)
[2020-03-02] MEDS: 0.9 % Sodium Chloride 1,000 ML IVC SCH ×2 (01:15→08:20)
[2020-03-02 05:56] LABS: Basophils % 0.1 %; Hematocrit 33.5 % (35.3-44.9); Hemoglobin 10.8 g/dL (11.5-15.4); Immature Granulocytes % 0.9 % (0-4); Lymphocytes # 0.6 K/mcL (0.6-4.6); Mean Corpuscular HGB Conc 32.2 g/dL (31.6-35.5); Mean Corpuscular Hemoglobin 32.5 pg (28.0-33.3); Mean Corpuscular Volume 100.9 fL (83.0-100.0); Mean Platelet Volume 9.6 fL (9.4-12.4); Monocytes # 0.5 K/mcL (0.0-1.3); Monocytes % 3.3 %; Neutrophils # 13.9 K/mcL (1.6-8.9); Platelet Count 280 K/mcL (140-400); Red Blood Count 3.32 M/mcL (3.82-4.97); Red Cell Distribution Width 13.3 % (11.5-14.5); Segmented Neutrophils % 91.7 %; White Blood Count 15.2 K/mcL (4.3-11.1)
[2020-03-02] MEDS: Ipratropium/Albuterol Neb 3 ML IH SCH ×2 (05:57→10:35)
[2020-03-02 06:09] LABS: BUN/Creatinine Ratio 29 (6-26); Blood Urea Nitrogen 12 mg/dL (6-20); Calcium 8.9 mg/dL (8.6-10.3); Carbon Dioxide 26 mEq/L (23-29); Chloride 107 mEq/L (98-107); Glucose 166 mg/dL (70-105); Osmolality,Calculated 296 (280-300); Potassium 4.3 mEq/L (3.5-5.1); Sodium 141 mEq/L (136-145); eGFR For African Americans > 60 (> 60); eGFR For Non-African Americans > 60 (> 60)
[2020-03-02 06:32] VITALS: BP 104/68
[2020-03-02] MEDS ORDERED: MethylPREDNISolone 40 MG/ML VIAL IVP SCH (08:00)
[2020-03-02] MEDS: Megestrol Acetate 400 MG/10 ML UDC PO SCH (08:22)
[2020-03-02] MEDS: Aspirin Enteric Coated 81 MG Tablet PO SCH (08:24)
[2020-03-02] MEDS: Nicotine 14 MG PATCH.TD24 TD SCH (08:24)
[2020-03-02] MEDS: Metoprolol XL (24 HR) Succ 25 MG TAB.ER.24H PO SCH (08:24)
[2020-03-02] MEDS ORDERED: levoFLOXacin 500 MG/100 ML 500 MG/100 ML BAG IVPB SCH (09:00)
== END 2020-03-02 10:12 | disposition home or self-care (01) ==
LOC: INPPIK 00:48 → EMEROOPIK 00:48 → INPPIK 03:19
PROVIDERS: ADMIT Family Medicine; ATTEND Family Medicine

== ENCOUNTER 2020-09-21 23:28 | Observation (INO) ==
[2020-09-22] MEDS ORDERED: Ipratropium/Albuterol Neb 3 ML IH ONE
[2020-09-22] MEDS ORDERED: levoFLOXacin 500 MG/100 ML 500 MG/100 ML BAG IVPB ONE
[2020-09-22] MEDS ORDERED: 0.9 % Sodium Chloride 1,000 ML IVC SCH
[2020-09-22] MEDS ORDERED: methylPREDNISolone 125 MG/2 ML VIAL IVP ONE
[2020-09-22 00:32] LABS: Basophils # 0.1 K/mcL (0.0-0.2); Basophils % 0.3 %; Eosinophils # 0.2 K/mcL (0.0-0.6); Hematocrit 41.3 % (35.3-44.9); Hemoglobin 13.7 g/dL (11.5-15.4); Immature Granulocytes % 0.4 % (0-4); Lymphocytes # 1.5 K/mcL (0.6-4.6); Lymphocytes % 9.4 %; Mean Corpuscular HGB Conc 33.2 g/dL (31.6-35.5); Mean Corpuscular Hemoglobin 32.2 pg (28.0-33.3); Mean Corpuscular Volume 97.2 fL (83.0-100.0); Mean Platelet Volume 9.7 fL (9.4-12.4); Monocytes # 1.5 K/mcL (0.0-1.3); Monocytes % 9.8 %; Platelet Count 245 K/mcL (140-400); Red Blood Count 4.25 M/mcL (3.82-4.97); Red Cell Distribution Width 13.1 % (11.5-14.5); Segmented Neutrophils % 79.1 %; White Blood Count 15.4 K/mcL (4.3-11.1)
[2020-09-22 00:38] LABS: Neutrophils # 12.2 K/mcL (1.6-8.9)
[2020-09-22 00:40] LABS: INR 1.2; Prothrombin Time 13.4 Seconds (9.4-12.1)
[2020-09-22 00:42] LABS: Activated Partial Thrombo Time 33.3 Seconds (26.0-36.0)
[2020-09-22 00:51] LABS: Troponin I < 0.03 ng/mL (< 0.04)
[2020-09-22 00:57] LABS: BUN/Creatinine Ratio 19 (6-26); Blood Urea Nitrogen 9 mg/dL (6-20); Calcium 9.4 mg/dL (8.6-10.3); Carbon Dioxide 27 mEq/L (23-29); Chloride 101 mEq/L (98-107); Glucose 119 mg/dL (70-105); Osmolality,Calculated 286 (280-300); Potassium 3.4 mEq/L (3.5-5.1); Sodium 138 mEq/L (136-145); eGFR For African Americans > 60 (> 60); eGFR For Non-African Americans > 60 (> 60)
[2020-09-22] MEDS ORDERED: Potassium Chloride Elixir 20 MEQ/15 ML UDC PO ONE (01:03)
[2020-09-22] MEDS ORDERED: Naloxone 0.4 MG/ML INJ IVP PRN (02:55)
[2020-09-22] MEDS ORDERED: Acetaminophen 325 MG TABLET PO PRN (02:55)
[2020-09-22] MEDS: *HR* HYDROcodone/Acet 5/325 mg TABLET PO PRN ×2 (03:12→19:28)
[2020-09-22] MEDS: 0.9 % Sodium Chloride 1,000 ML IVC SCH ×2 (03:13→10:14)
[2020-09-22] MEDS: Ipratropium/Albuterol Neb 3 ML IH SCH ×2 (04:49→09:04)
[2020-09-22 05:36] LABS: Basophils % 0.1 %; Hematocrit 38.6 % (35.3-44.9); Hemoglobin 12.7 g/dL (11.5-15.4); Immature Granulocytes % 0.6 % (0-4); Lymphocytes # 0.3 K/mcL (0.6-4.6); Mean Corpuscular HGB Conc 32.9 g/dL (31.6-35.5); Mean Corpuscular Volume 97.2 fL (83.0-100.0); Monocytes # 0.2 K/mcL (0.0-1.3); Monocytes % 1.4 %; Neutrophils # 13.8 K/mcL (1.6-8.9); Platelet Count 223 K/mcL (140-400); Red Blood Count 3.97 M/mcL (3.82-4.97); Segmented Neutrophils % 95.9 %; White Blood Count 14.4 K/mcL (4.3-11.1)
[2020-09-22] MEDS ORDERED: MethylPREDNISolone 40 MG/ML VIAL IVP SCH (06:00)
[2020-09-22 06:19] LABS: BUN/Creatinine Ratio 15 (6-26); Blood Urea Nitrogen 7 mg/dL (6-20); Carbon Dioxide 25 mEq/L (23-29); Chloride 105 mEq/L (98-107); Glucose 156 mg/dL (70-105); Magnesium 1.9 mg/dL (1.6-2.6); Osmolality,Calculated 283 (280-300); Phosphorous 2.3 mg/dL (2.7-4.5); Potassium 4.6 mEq/L (3.5-5.1); Sodium 136 mEq/L (136-145); eGFR For African Americans > 60 (> 60); eGFR For Non-African Americans > 60 (> 60)
[2020-09-22] MEDS: Megestrol Acetate 400 MG/10 ML UDC PO SCH ×2 (08:50→19:29)
[2020-09-22] MEDS: Metoprolol XL (24 HR) Succ 25 MG TAB.ER.24H PO SCH (08:51)
[2020-09-22] MEDS: Budesonide/Formoterol 160/4.5 1 PUFF INH IH SCH ×2 (09:57→21:57)
[2020-09-22] MEDS: Tiotropium 10 INH DOSE IH SCH (09:57)
[2020-09-22 12:09] LABS: Bilirubin,Urine Negative (Negative); Blood,Urine Trace-intact (Negative); Clarity,Urine Clear (Clear); Color,Urine Yellow (Yellow); Glucose,Urine (UA) 500 mg/dL (Normal); Ketones,Urine Negative (Negative); Leukocyte Esterase,Urine Negative (Negative); Nitrite,Urine Negative (Negative); PH,Urine 7.5 pH Units (5.0-8.0); Protein,Urine Negative (Neg-Trace); Urobilinogen,Urine Normal (Normal)
[2020-09-22 12:19] LABS: RBC,Urine 0-3 per hpf (0-3); Squamous Epithelial Cell,Urine Few per hpf (None-Few); WBC,Urine 0-3 per hpf (0-3)
[2020-09-22] MEDS ORDERED: levoFLOXacin 500 MG/100 ML 500 MG/100 ML BAG IVPB SCH (23:00)
[2020-09-23 04:48] LABS: Hematocrit 37.5 % (35.3-44.9); Hemoglobin 12.1 g/dL (11.5-15.4); Mean Corpuscular HGB Conc 32.3 g/dL (31.6-35.5); Mean Corpuscular Hemoglobin 32.4 pg (28.0-33.3); Mean Corpuscular Volume 100.3 fL (83.0-100.0); Mean Platelet Volume 9.6 fL (9.4-12.4); Platelet Count 241 K/mcL (140-400); Red Blood Count 3.74 M/mcL (3.82-4.97); White Blood Count 13.2 K/mcL (4.3-11.1)
[2020-09-23 05:04] LABS: BUN/Creatinine Ratio 26 (6-26); Blood Urea Nitrogen 11 mg/dL (6-20); Calcium 8.6 mg/dL (8.6-10.3); Carbon Dioxide 25 mEq/L (23-29); Chloride 107 mEq/L (98-107); Glucose 112 mg/dL (70-105); Osmolality,Calculated 284 (280-300); Potassium 4.3 mEq/L (3.5-5.1); Sodium 137 mEq/L (136-145); eGFR For African Americans > 60 (> 60); eGFR For Non-African Americans > 60 (> 60)
[2020-09-23 08:10] VITALS: BP 109/72
[2020-09-23] MEDS: Megestrol Acetate 400 MG/10 ML UDC PO SCH (08:22)
[2020-09-23] MEDS: Metoprolol XL (24 HR) Succ 25 MG TAB.ER.24H PO SCH (08:32)
[2020-09-23] MEDS: Tiotropium 10 INH DOSE IH SCH (09:18)
[2020-09-23] MEDS: Budesonide/Formoterol 160/4.5 1 PUFF INH IH SCH (09:18)
== END 2020-09-23 10:50 | disposition home or self-care (01) ==
LOC: EMEROOPIK 23:28 → INPPIK 23:28
PROVIDERS: ADMIT Family Medicine; ATTEND Family Medicine

== ENCOUNTER 2020-12-13 20:44 | Observation (INO) ==
[2020-12-13 21:28] LABS: Basophils % 0.3 %; Eosinophils # 0.1 K/mcL (0.0-0.6); Eosinophils % 0.6 %; Hematocrit 43.4 % (35.3-44.9); Hemoglobin 13.9 g/dL (11.5-15.4); Immature Granulocytes % 0.4 % (0-4); Lymphocytes # 1.7 K/mcL (0.6-4.6); Lymphocytes % 13.7 %; Mean Corpuscular Hemoglobin 33.4 pg (28.0-33.3); Mean Corpuscular Volume 104.3 fL (83.0-100.0); Monocytes # 1.1 K/mcL (0.0-1.3); Monocytes % 8.9 %; Platelet Count 230 K/mcL (140-400); Red Blood Count 4.16 M/mcL (3.82-4.97); Red Cell Distribution Width 14.3 % (11.5-14.5); Segmented Neutrophils % 76.1 %; White Blood Count 12.7 K/mcL (4.3-11.1)
[2020-12-13 21:29] LABS: Neutrophils # 9.7 K/mcL (1.6-8.9)
[2020-12-13 21:37] LABS: INR 1.1; Prothrombin Time 12.9 Seconds (9.4-12.1)
[2020-12-13 21:39] LABS: Activated Partial Thrombo Time 34.1 Seconds (26.0-36.0)
[2020-12-13 21:43] LABS: D-Dimer < 215 ng/mLFEU (0-500)
[2020-12-13 21:48] LABS: Alanine Aminotransferase 12 Units/L (7-52); Albumin 4.5 g/dL (3.5-5.7); Albumin/Globulin Ratio 1.8 (1.1-2.2); Alkaline Phosphatase 37 Units/L (34-104); Aspartate Amino Transferase 12 Units/L (13-39); BUN/Creatinine Ratio 21 (6-26); Blood Urea Nitrogen 9 mg/dL (6-20); Calcium 9.7 mg/dL (8.6-10.3); Carbon Dioxide 31 mEq/L (23-29); Chloride 100 mEq/L (98-107); Globulin 2.5 g/dL (2.4-3.5); Glucose 99 mg/dL (70-105); Magnesium 1.9 mg/dL (1.6-2.6); Osmolality,Calculated 285 (280-300); Phosphorous 2.6 mg/dL (2.7-4.5); Potassium 3.4 mEq/L (3.5-5.1); Sodium 138 mEq/L (136-145); Troponin I < 0.03 ng/mL (< 0.04); eGFR For African Americans > 60 (> 60); eGFR For Non-African Americans > 60 (> 60)
[2020-12-13] MEDS ORDERED: Azithromycin 500 MG in 0.9 % Sodium Chloride 250 ML IVPB ONE (22:08)
[2020-12-13] MEDS ORDERED: Ipratropium/Albuterol Neb 3 ML IH ONE (22:08)
[2020-12-13] MEDS ORDERED: cefTRIAXone 1,000 MG in 0.9 % Sodium Chloride Mini Bag 100 ML IVPB ONE (22:27)
[2020-12-13] MEDS ORDERED: Ibuprofen 800 MG TABLET PO ONE (22:45)
[2020-12-13] MEDS ORDERED: Naloxone 0.4 MG/ML INJ IVP PRN (23:22)
[2020-12-13] MEDS ORDERED: 0.9 % Sodium Chloride 1,000 ML IVC SCH (23:22)
[2020-12-14] MEDS: Acetaminophen 325 MG TABLET PO PRN ×3 (01:58→22:20)
[2020-12-14] MEDS: Metoprolol XL (24 HR) Succ 25 MG TAB.ER.24H PO SCH ×2 (01:58→20:53)
[2020-12-14] MEDS: Ipratropium/Albuterol Neb 3 ML IH SCH ×4 (04:05→21:57)
[2020-12-14 05:47] LABS: Basophils % 0.1 %; Hematocrit 41.3 % (35.3-44.9); Immature Granulocytes % 0.3 % (0-4); Lymphocytes # 0.4 K/mcL (0.6-4.6); Lymphocytes % 3.4 %; Mean Corpuscular HGB Conc 31.5 g/dL (31.6-35.5); Mean Corpuscular Volume 104.8 fL (83.0-100.0); Mean Platelet Volume 9.8 fL (9.4-12.4); Monocytes # 0.1 K/mcL (0.0-1.3); Monocytes % 1.1 %; Neutrophils # 10.2 K/mcL (1.6-8.9); Platelet Count 214 K/mcL (140-400); Red Blood Count 3.94 M/mcL (3.82-4.97); Red Cell Distribution Width 14.1 % (11.5-14.5); Segmented Neutrophils % 95.1 %; White Blood Count 10.7 K/mcL (4.3-11.1)
[2020-12-14 06:21] LABS: BUN/Creatinine Ratio 25 (6-26); Blood Urea Nitrogen 13 mg/dL (6-20); Calcium 9.5 mg/dL (8.6-10.3); Carbon Dioxide 33 mEq/L (23-29); Chloride 102 mEq/L (98-107); Glucose 151 mg/dL (70-105); Osmolality,Calculated 293 (280-300); Potassium 4.7 mEq/L (3.5-5.1); Sodium 140 mEq/L (136-145); eGFR For African Americans > 60 (> 60); eGFR For Non-African Americans > 60 (> 60)
[2020-12-14] MEDS: Megestrol Acetate 400 MG/10 ML UDC PO SCH ×2 (08:50→20:52)
[2020-12-14] MEDS ORDERED: cefTRIAXone 1,000 MG in Water for inj. (sterile) 10 ML IVP SCH (09:00)
[2020-12-14] MEDS ORDERED: Metoprolol XL (24 HR) Succ 25 MG TAB.ER.24H PO SCH (09:00)
[2020-12-14] MEDS: MethylPREDNISolone 40 MG/ML VIAL IVP SCH ×2 (09:52→16:21)
[2020-12-14] MEDS: Budesonide/Formoterol 160/4.5 1 PUFF INH IH SCH ×2 (10:43→21:57)
[2020-12-14] MEDS ORDERED: MethylPREDNISolone 40 MG/ML VIAL IVP SCH (16:00)
[2020-12-14] MEDS: Simethicone 80 MG TAB.CHEW PO PRN (18:11)
[2020-12-14] MEDS ORDERED: Nicotine 21 MG PATCH.TD24 TD SCH (23:30)
[2020-12-15] MEDS: MethylPREDNISolone 40 MG/ML VIAL IVP SCH ×3 (00:14→16:05)
[2020-12-15] MEDS: Ipratropium/Albuterol Neb 3 ML IH SCH ×3 (04:14→15:32)
[2020-12-15 07:54] VITALS: BP 105/61
[2020-12-15] MEDS: Megestrol Acetate 400 MG/10 ML UDC PO SCH (08:22)
[2020-12-15] MEDS ORDERED: Ketorolac 15 MG/ML VIAL IVP ONE (08:33)
[2020-12-15 09:20] LABS: Hematocrit 39.4 % (35.3-44.9); Hemoglobin 12.4 g/dL (11.5-15.4); Mean Corpuscular HGB Conc 31.5 g/dL (31.6-35.5); Mean Corpuscular Hemoglobin 33.2 pg (28.0-33.3); Mean Corpuscular Volume 105.3 fL (83.0-100.0); Mean Platelet Volume 10.1 fL (9.4-12.4); Platelet Count 245 K/mcL (140-400); Red Blood Count 3.74 M/mcL (3.82-4.97); Red Cell Distribution Width 14.1 % (11.5-14.5)
[2020-12-15 09:28] LABS: BUN/Creatinine Ratio 31 (6-26); Blood Urea Nitrogen 12 mg/dL (6-20); Calcium 9.3 mg/dL (8.6-10.3); Carbon Dioxide 29 mEq/L (23-29); Chloride 104 mEq/L (98-107); Glucose 134 mg/dL (70-105); Osmolality,Calculated 290 (280-300); Potassium 4.5 mEq/L (3.5-5.1); Sodium 139 mEq/L (136-145); eGFR For African Americans > 60 (> 60); eGFR For Non-African Americans > 60 (> 60)
[2020-12-15] MEDS: Budesonide/Formoterol 160/4.5 1 PUFF INH IH SCH (09:44)
[2020-12-15] MEDS: Simethicone 80 MG TAB.CHEW PO PRN (14:02)
== END 2020-12-15 17:40 | disposition home or self-care (01) ==
LOC: INPPIK 20:44 → EMEROOPIK 20:44 → INPPIK 23:37
PROVIDERS: ADMIT Family Medicine; ATTEND Family Medicine

== ENCOUNTER 2021-10-23 02:08 | Inpatient (IN) ==
[2021-10-23] MEDS ORDERED: methylPREDNISolone 125 MG/2 ML VIAL IVP ONE (03:00)
[2021-10-23 03:17] LABS: Basophils # 0.1 K/mcL (0.0-0.2); Basophils % 0.3 %; Eosinophils % 0.2 %; Hematocrit 44.5 % (35.3-44.9); Hemoglobin 14.1 g/dL (11.5-15.4); Immature Granulocytes % 0.5 % (0-4); Lymphocytes # 1.3 K/mcL (0.6-4.6); Lymphocytes % 8.1 %; Mean Corpuscular HGB Conc 31.7 g/dL (31.6-35.5); Mean Corpuscular Volume 97.8 fL (83.0-100.0); Mean Platelet Volume 11.4 fL (9.4-12.4); Monocytes # 1.3 K/mcL (0.0-1.3); Monocytes % 8.4 %; Neutrophils # 13.2 K/mcL (1.6-8.9); Platelet Count 195 K/mcL (140-400); Red Blood Count 4.55 M/mcL (3.82-4.97); Red Cell Distribution Width 13.6 % (11.5-14.5); Segmented Neutrophils % 82.5 %
[2021-10-23 03:23] LABS: BUN/Creatinine Ratio 27 (6-26); Blood Urea Nitrogen 11 mg/dL (6-20); Calcium 9.8 mg/dL (8.6-10.3); Carbon Dioxide 32 mEq/L (23-29); Chloride 101 mEq/L (98-107); Glucose 122 mg/dL (70-105); Osmolality,Calculated 291 (280-300); Potassium 3.6 mEq/L (3.5-5.1); Sodium 140 mEq/L (136-145); eGFR For African Americans > 60 (> 60); eGFR For Non-African Americans > 60 (> 60)
[2021-10-23 03:24] LABS: Troponin I < 0.03 ng/mL (< 0.04)
[2021-10-23] MEDS ORDERED: levoFLOXacin 750 MG TABLET PO ONE (03:34)
[2021-10-23] MEDS ORDERED: Naloxone 0.4 MG/ML INJ IVP PRN ×2 (05:04→09:10)
[2021-10-23] MEDS: Ipratropium/Albuterol Neb 3 ML IH SCH ×2 (05:15→08:59)
[2021-10-23] MEDS: 0.9 % Sodium Chloride 1,000 ML IVC SCH ×2 (06:39→15:15)
[2021-10-23] MEDS ORDERED: Ipratropium/Albuterol Neb 3 ML IH PRN (09:15)
[2021-10-23] MEDS ORDERED: hydrOXYzine pamoate 25 MG CAPSULE PO PRN (09:19)
[2021-10-23] MEDS ORDERED: Budesonide/Formoterol 160/4.5 1 PUFF INH IH SCH (10:00)
[2021-10-23] MEDS: Budesonide/Formoterol 160/4.5 1 PUFF INH IH SCH ×2 (10:54→21:40)
[2021-10-23] MEDS: Tiotropium 10 INH DOSE IH SCH (10:57)
[2021-10-23] MEDS: MethylPREDNISolone 40 MG/ML VIAL IVP SCH ×2 (16:20→23:49)
[2021-10-23] MEDS: Megestrol Acetate 400 MG/10 ML UDC PO SCH (20:57)
[2021-10-24] MEDS: *HR* Enoxaparin 40 MG/0.4 ML SYRINGE SQ SCH (05:32)
[2021-10-24 07:16] LABS: Basophils % 0.1 %; Hematocrit 42.5 % (35.3-44.9); Hemoglobin 12.9 g/dL (11.5-15.4); Immature Granulocytes % 0.9 % (0-4); Lymphocytes # 0.8 K/mcL (0.6-4.6); Lymphocytes % 4.1 %; Mean Corpuscular HGB Conc 30.4 g/dL (31.6-35.5); Mean Corpuscular Hemoglobin 31.1 pg (28.0-33.3); Mean Corpuscular Volume 102.4 fL (83.0-100.0); Mean Platelet Volume 11.4 fL (9.4-12.4); Neutrophils # 17.1 K/mcL (1.6-8.9); Platelet Count 192 K/mcL (140-400); Red Blood Count 4.15 M/mcL (3.82-4.97); Red Cell Distribution Width 13.4 % (11.5-14.5); Segmented Neutrophils % 89.9 %
[2021-10-24 07:41] LABS: BUN/Creatinine Ratio 23 (6-26); Blood Urea Nitrogen 10 mg/dL (6-20); Calcium 9.4 mg/dL (8.6-10.3); Carbon Dioxide 29 mEq/L (23-29); Chloride 103 mEq/L (98-107); Glucose 128 mg/dL (70-105); Magnesium 1.9 mg/dL (1.6-2.6); Osmolality,Calculated 291 (280-300); Potassium 3.9 mEq/L (3.5-5.1); Sodium 140 mEq/L (136-145); eGFR For African Americans > 60 (> 60); eGFR For Non-African Americans > 60 (> 60)
[2021-10-24] MEDS: Budesonide/Formoterol 160/4.5 1 PUFF INH IH SCH ×2 (08:05→21:05)
[2021-10-24] MEDS: Tiotropium 10 INH DOSE IH SCH (08:07)
[2021-10-24] MEDS: MethylPREDNISolone 40 MG/ML VIAL IVP SCH ×2 (09:08→10:28)
[2021-10-24] MEDS: Megestrol Acetate 400 MG/10 ML UDC PO SCH ×2 (09:09→21:38)
[2021-10-24] MEDS: levoFLOXacin 750 MG/150 ML 750 MG/150 ML BAG IVPB SCH ×2 (09:09→10:27)
[2021-10-24] MEDS: Metoprolol XL (24 HR) Succ 25 MG TAB.ER.24H PO SCH (09:11)
[2021-10-25] MEDS ORDERED: 0.9 % Sodium Chloride 500 ML IVC PRN (01:04)
[2021-10-25] MEDS ORDERED: 0.9 % Sodium Chloride 1,000 ML IVC SCH (01:15)
[2021-10-25] MEDS: *HR* Enoxaparin 40 MG/0.4 ML SYRINGE SQ SCH (05:25)
[2021-10-25 05:55] LABS: Basophils % 0.1 %; Eosinophils % 0.1 %; Hematocrit 39.2 % (35.3-44.9); Hemoglobin 11.8 g/dL (11.5-15.4); Immature Granulocytes % 0.5 % (0-4); Lymphocytes # 1.3 K/mcL (0.6-4.6); Lymphocytes % 8.4 %; Mean Corpuscular HGB Conc 30.1 g/dL (31.6-35.5); Mean Corpuscular Volume 102.9 fL (83.0-100.0); Mean Platelet Volume 10.8 fL (9.4-12.4); Monocytes # 1.5 K/mcL (0.0-1.3); Neutrophils # 12.4 K/mcL (1.6-8.9); Platelet Count 198 K/mcL (140-400); Red Blood Count 3.81 M/mcL (3.82-4.97); Red Cell Distribution Width 13.5 % (11.5-14.5); Segmented Neutrophils % 80.9 %; White Blood Count 15.3 K/mcL (4.3-11.1)
[2021-10-25 06:14] LABS: BUN/Creatinine Ratio 35 (6-26); Blood Urea Nitrogen 18 mg/dL (6-20); Calcium 8.9 mg/dL (8.6-10.3); Carbon Dioxide 30 mEq/L (23-29); Chloride 106 mEq/L (98-107); Glucose 100 mg/dL (70-105); Magnesium 1.8 mg/dL (1.6-2.6); Osmolality,Calculated 292 (280-300); Potassium 4.4 mEq/L (3.5-5.1); Sodium 140 mEq/L (136-145); eGFR For African Americans > 60 (> 60); eGFR For Non-African Americans > 60 (> 60)
[2021-10-25] MEDS: Megestrol Acetate 400 MG/10 ML UDC PO SCH ×2 (08:35→21:27)
[2021-10-25] MEDS: levoFLOXacin 750 MG/150 ML 750 MG/150 ML BAG IVPB SCH (08:37)
[2021-10-25] MEDS: Metoprolol XL (24 HR) Succ 25 MG TAB.ER.24H PO SCH ×2 (08:39→14:09)
[2021-10-25] MEDS: Budesonide/Formoterol 160/4.5 1 PUFF INH IH SCH ×2 (08:55→21:13)
[2021-10-25] MEDS: Tiotropium 10 INH DOSE IH SCH (08:55)
[2021-10-25] MEDS ORDERED: MethylPREDNISolone 40 MG/ML VIAL IVP SCH (09:00)
[2021-10-25] MEDS ORDERED: Benzonatate 100 MG CAPSULE PO PRN (09:20)
[2021-10-25] MEDS: MethylPREDNISolone 40 MG/ML VIAL IVP SCH ×3 (09:52→21:23)
[2021-10-25 14:39] LABS: Adenovirus Not Detected (Not Detect); Bordetella Pertussis Not Detected (Not Detect); Chlamydophila pneumoniae Not Detected (Not Detect); Coronavirus 229E Not Detected (Not Detect); Coronavirus HKU1 Not Detected (Not Detect); Coronavirus NL63 Not Detected (Not Detect); Coronavirus OC43 Not Detected (Not Detect); Human Metapneumovirus Not Detected (Not Detect); Human Rhinovirus/Enterovirus Not Detected (Not Detect); Influenza A Subtype 2009 H1 Not Detected (Not Detect); Influenza B Not Detected (Not Detect); Mycoplasma pneumoniae Not Detected (Not Detect); Parainfluenza Virus 1 Not Detected (Not Detect); Parainfluenza Virus 2 Not Detected (Not Detect); Parainfluenza Virus 3 Not Detected (Not Detect); Parainfluenza Virus 4 Not Detected (Not Detect); Respiratory Syncytial Virus Not Detected (Not Detect); SARS-CoV-2 Not Detected (Not Detect)
[2021-10-25] MEDS: Piperacillin/Tazobactam 3.375 GM in 0.9 % Sodium Chloride Mini Bag 100 ML IVPB SCH (23:59)
[2021-10-26] MEDS: MethylPREDNISolone 40 MG/ML VIAL IVP SCH ×3 (03:45→16:17)
[2021-10-26] MEDS: *HR* Enoxaparin 40 MG/0.4 ML SYRINGE SQ SCH (05:45)
[2021-10-26 07:55] LABS: Basophils % 0.1 %; Hematocrit 40.9 % (35.3-44.9); Hemoglobin 12.6 g/dL (11.5-15.4); Immature Granulocytes % 0.7 % (0-4); Lymphocytes # 0.6 K/mcL (0.6-4.6); Lymphocytes % 5.6 %; Mean Corpuscular HGB Conc 30.8 g/dL (31.6-35.5); Mean Corpuscular Hemoglobin 30.8 pg (28.0-33.3); Mean Platelet Volume 10.4 fL (9.4-12.4); Monocytes # 0.6 K/mcL (0.0-1.3); Monocytes % 5.9 %; Neutrophils # 9.6 K/mcL (1.6-8.9); Platelet Count 230 K/mcL (140-400); Red Blood Count 4.09 M/mcL (3.82-4.97); Red Cell Distribution Width 13.3 % (11.5-14.5); Segmented Neutrophils % 87.7 %; White Blood Count 10.9 K/mcL (4.3-11.1)
[2021-10-26 08:29] LABS: BUN/Creatinine Ratio 29 (6-26); Blood Urea Nitrogen 11 mg/dL (6-20); Calcium 9.3 mg/dL (8.6-10.3); Carbon Dioxide 31 mEq/L (23-29); Chloride 103 mEq/L (98-107); Glucose 121 mg/dL (70-105); Osmolality,Calculated 289 (280-300); Potassium 4.6 mEq/L (3.5-5.1); Sodium 139 mEq/L (136-145); eGFR For African Americans > 60 (> 60); eGFR For Non-African Americans > 60 (> 60)
[2021-10-26] MEDS: Megestrol Acetate 400 MG/10 ML UDC PO SCH ×2 (09:26→21:25)
[2021-10-26] MEDS: Metoprolol XL (24 HR) Succ 25 MG TAB.ER.24H PO SCH (09:27)
[2021-10-26] MEDS: Piperacillin/Tazobactam 3.375 GM in 0.9 % Sodium Chloride Mini Bag 100 ML IVPB SCH ×2 (09:27→16:19)
[2021-10-26] MEDS: Tiotropium 10 INH DOSE IH SCH (09:29)
[2021-10-26] MEDS: Budesonide/Formoterol 160/4.5 1 PUFF INH IH SCH ×2 (09:29→22:10)
[2021-10-27] MEDS: Piperacillin/Tazobactam 3.375 GM in 0.9 % Sodium Chloride Mini Bag 100 ML IVPB SCH ×2 (00:13→10:29)
[2021-10-27] MEDS: MethylPREDNISolone 40 MG/ML VIAL IVP SCH (04:12)
[2021-10-27] MEDS: *HR* Enoxaparin 40 MG/0.4 ML SYRINGE SQ SCH (05:37)
[2021-10-27 06:40] LABS: Basophils % 0.1 %; Hematocrit 39.9 % (35.3-44.9); Hemoglobin 12.3 g/dL (11.5-15.4); Immature Granulocytes % 0.6 % (0-4); Lymphocytes # 0.8 K/mcL (0.6-4.6); Lymphocytes % 7.1 %; Mean Corpuscular HGB Conc 30.8 g/dL (31.6-35.5); Mean Corpuscular Hemoglobin 30.8 pg (28.0-33.3); Mean Platelet Volume 10.4 fL (9.4-12.4); Monocytes # 1.2 K/mcL (0.0-1.3); Neutrophils # 8.7 K/mcL (1.6-8.9); Platelet Count 230 K/mcL (140-400); Red Blood Count 3.99 M/mcL (3.82-4.97); Red Cell Distribution Width 13.4 % (11.5-14.5); Segmented Neutrophils % 81.2 %; White Blood Count 10.8 K/mcL (4.3-11.1)
[2021-10-27 07:02] LABS: BUN/Creatinine Ratio 30 (6-26); Blood Urea Nitrogen 14 mg/dL (6-20); Calcium 8.7 mg/dL (8.6-10.3); Carbon Dioxide 32 mEq/L (23-29); Chloride 103 mEq/L (98-107); Glucose 114 mg/dL (70-105); Osmolality,Calculated 289 (280-300); Potassium 4.3 mEq/L (3.5-5.1); Sodium 139 mEq/L (136-145); eGFR For African Americans > 60 (> 60); eGFR For Non-African Americans > 60 (> 60)
[2021-10-27] MEDS: Metoprolol XL (24 HR) Succ 25 MG TAB.ER.24H PO SCH (10:28)
[2021-10-27] MEDS: Megestrol Acetate 400 MG/10 ML UDC PO SCH (10:28)
[2021-10-27 10:30] VITALS: BP 109/64; PULSE 102; TEMP 97.7; O2SAT 94
[2021-10-27] MEDS: Budesonide/Formoterol 160/4.5 1 PUFF INH IH SCH (10:38)
[2021-10-27] MEDS: Tiotropium 10 INH DOSE IH SCH (10:39)
[2021-10-27 12:46] VITALS: RESP 16
== END 2021-10-27 13:52 | disposition home or self-care (01) | DRG 139 ==
LOC: INPPIK 02:08 → EMEROOPIK 02:08 → INPPIK 06:36
PROVIDERS: ADMIT Family Medicine; ATTEND Family Medicine

== ENCOUNTER 2021-12-26 23:24 | Observation (INO) ==
[2021-12-27] MEDS ORDERED: Naloxone 0.4 MG/ML INJ IVP PRN (09:15)
[2021-12-27] MEDS ORDERED: Benzonatate 100 MG CAPSULE PO PRN (09:16)
[2021-12-27] MEDS ORDERED: hydrOXYzine pamoate 25 MG CAPSULE PO PRN (09:28)
[2021-12-27] MEDS: Budesonide/Formoterol 160/4.5 1 PUFF INH IH SCH ×2 (10:08→22:01)
[2021-12-27 11:17] LABS: Adenovirus Not Detected (Not Detect); Bordetella Pertussis Not Detected (Not Detect); Chlamydophila pneumoniae Not Detected (Not Detect); Coronavirus 229E Not Detected (Not Detect); Coronavirus HKU1 Not Detected (Not Detect); Coronavirus NL63 Not Detected (Not Detect); Coronavirus OC43 Not Detected (Not Detect); Human Metapneumovirus Not Detected (Not Detect); Human Rhinovirus/Enterovirus Not Detected (Not Detect); Influenza A Subtype 2009 H1 Not Detected (Not Detect); Influenza B Not Detected (Not Detect); Mycoplasma pneumoniae Not Detected (Not Detect); Parainfluenza Virus 1 Not Detected (Not Detect); Parainfluenza Virus 2 Not Detected (Not Detect); Parainfluenza Virus 3 Not Detected (Not Detect); Parainfluenza Virus 4 Not Detected (Not Detect); Respiratory Syncytial Virus Not Detected (Not Detect); SARS-CoV-2 Not Detected (Not Detect)
[2021-12-27] MEDS: Azithromycin 250 MG TABLET PO SCH (11:36)
[2021-12-27] MEDS: Metoprolol XL (24 HR) Succ 25 MG TAB.ER.24H PO SCH (11:37)
[2021-12-27] MEDS: MethylPREDNISolone 40 MG/ML VIAL IVP SCH ×2 (11:37→17:14)
[2021-12-27] MEDS: Ipratropium/Albuterol Neb 3 ML IH PRN (17:32)
[2021-12-27] MEDS: Megestrol Acetate 400 MG/10 ML UDC PO SCH (23:10)
[2021-12-28] MEDS: Ipratropium/Albuterol Neb 3 ML IH PRN (00:18)
[2021-12-28] MEDS: MethylPREDNISolone 40 MG/ML VIAL IVP SCH ×3 (01:07→13:25)
[2021-12-28] MEDS ORDERED: *HR* Enoxaparin 40 MG/0.4 ML SYRINGE SQ SCH (06:00)
[2021-12-28 07:35] VITALS: BP 98/65; PULSE 97; TEMP 97.9; O2SAT 95
[2021-12-28 07:59] LABS: Basophils % 0.2 %; Hematocrit 41.2 % (35.3-44.9); Hemoglobin 12.9 g/dL (11.5-15.4); Immature Granulocytes % 0.8 % (0-4); Lymphocytes # 0.8 K/mcL (0.6-4.6); Lymphocytes % 4.3 %; Mean Corpuscular HGB Conc 31.3 g/dL (31.6-35.5); Mean Corpuscular Hemoglobin 31.4 pg (28.0-33.3); Mean Corpuscular Volume 100.2 fL (83.0-100.0); Mean Platelet Volume 10.7 fL (9.4-12.4); Monocytes # 1.2 K/mcL (0.0-1.3); Monocytes % 6.7 %; Neutrophils # 16.3 K/mcL (1.6-8.9); Platelet Count 184 K/mcL (140-400); Red Blood Count 4.11 M/mcL (3.82-4.97); Red Cell Distribution Width 13.8 % (11.5-14.5); White Blood Count 18.5 K/mcL (4.3-11.1)
[2021-12-28 08:25] LABS: BUN/Creatinine Ratio 35 (6-26); Blood Urea Nitrogen 14 mg/dL (6-20); Calcium 9.3 mg/dL (8.6-10.3); Carbon Dioxide 31 mEq/L (23-29); Chloride 105 mEq/L (98-107); Glucose 131 mg/dL (70-105); Magnesium 2.1 mg/dL (1.6-2.6); Osmolality,Calculated 292 (280-300); Potassium 4.7 mEq/L (3.5-5.1); Sodium 140 mEq/L (136-145); eGFR For African Americans > 60 (> 60); eGFR For Non-African Americans > 60 (> 60)
[2021-12-28] MEDS ORDERED: Metoprolol XL (24 HR) Succ 25 MG TAB.ER.24H PO SCH (09:00)
[2021-12-28] MEDS: Megestrol Acetate 400 MG/10 ML UDC PO SCH (09:42)
[2021-12-28] MEDS: Azithromycin 250 MG TABLET PO SCH (09:42)
[2021-12-28] MEDS: Metoprolol XL (24 HR) Succ 25 MG TAB.ER.24H PO SCH (09:43)
[2021-12-28] MEDS: Budesonide/Formoterol 160/4.5 1 PUFF INH IH SCH (10:54)
[2021-12-28 11:00] VITALS: RESP 18
[2021-12-29] MEDS ORDERED: Azithromycin 250 MG TABLET PO SCH (09:00)
== END 2021-12-28 14:25 | disposition home or self-care (01) ==
LOC: INPPIK
PROVIDERS: ADMIT Family Medicine; ATTEND Internal Medicine

== ENCOUNTER 2022-01-05 07:55 | Inpatient (IN) ==
[2022-01-05] MEDS ORDERED: Acetaminophen 325 MG TABLET PO PRN (09:59)
[2022-01-05] MEDS ORDERED: Mag Hydrox/Al Hydrox/Simeth 30 ML UDC PO PRN (09:59)
[2022-01-05] MEDS ORDERED: Ondansetron 4 MG/2 ML VIAL IVP PRN (09:59)
[2022-01-05] MEDS ORDERED: Naloxone 0.4 MG/ML INJ IVP PRN (09:59)
[2022-01-05] MEDS ORDERED: MOM Conc 10 ML UD.LIQ PO PRN (09:59)
[2022-01-05] MEDS ORDERED: MethylPREDNISolone 40 MG/ML VIAL IVP SCH (10:09)
[2022-01-05] MEDS ORDERED: hydrOXYzine pamoate 25 MG CAPSULE PO PRN (10:20)
[2022-01-05] MEDS ORDERED: Tiotropium 10 INH DOSE IH SCH (10:30)
[2022-01-05] MEDS: MethylPREDNISolone 40 MG/ML VIAL IVP SCH ×2 (10:50→21:20)
[2022-01-05] MEDS: Megestrol Acetate 400 MG/10 ML UDC PO SCH ×2 (11:04→21:19)
[2022-01-05] MEDS: Metoprolol XL (24 HR) Succ 25 MG TAB.ER.24H PO SCH (11:04)
[2022-01-05] MEDS: Budesonide/Formoterol 160/4.5 1 PUFF INH IH SCH ×2 (11:06→20:17)
[2022-01-05] MEDS: Ipratropium/Albuterol Neb 3 ML IH SCH ×4 (11:06→23:54)
[2022-01-05] MEDS: levoFLOXacin 500 MG/100 ML 500 MG/100 ML BAG IVPB SCH (16:56)
[2022-01-06] MEDS: Ipratropium/Albuterol Neb 3 ML IH SCH ×5 (04:14→20:14)
[2022-01-06] MEDS: MethylPREDNISolone 40 MG/ML VIAL IVP SCH ×3 (05:04→20:34)
[2022-01-06] MEDS: Budesonide/Formoterol 160/4.5 1 PUFF INH IH SCH ×2 (07:41→20:15)
[2022-01-06 07:50] LABS: Basophils % 0.1 %; Hematocrit 41.6 % (35.3-44.9); Hemoglobin 12.7 g/dL (11.5-15.4); Immature Granulocytes % 0.7 % (0-4); Lymphocytes # 0.4 K/mcL (0.6-4.6); Lymphocytes % 2.6 %; Mean Corpuscular HGB Conc 30.5 g/dL (31.6-35.5); Mean Corpuscular Hemoglobin 31.2 pg (28.0-33.3); Mean Corpuscular Volume 102.2 fL (83.0-100.0); Mean Platelet Volume 9.8 fL (9.4-12.4); Monocytes # 0.5 K/mcL (0.0-1.3); Monocytes % 3.1 %; Neutrophils # 14.3 K/mcL (1.6-8.9); Platelet Count 211 K/mcL (140-400); Red Blood Count 4.07 M/mcL (3.82-4.97); Red Cell Distribution Width 13.4 % (11.5-14.5); Segmented Neutrophils % 93.5 %; White Blood Count 15.3 K/mcL (4.3-11.1)
[2022-01-06 08:09] LABS: BUN/Creatinine Ratio 24 (6-26); Blood Urea Nitrogen 12 mg/dL (6-20); Calcium 9.4 mg/dL (8.6-10.3); Carbon Dioxide 33 mEq/L (23-29); Chloride 101 mEq/L (98-107); Glucose 129 mg/dL (70-105); Osmolality,Calculated 287 (280-300); Potassium 4.8 mEq/L (3.5-5.1); Sodium 138 mEq/L (136-145); eGFR For African Americans > 60 (> 60); eGFR For Non-African Americans > 60 (> 60)
[2022-01-06] MEDS: Metoprolol XL (24 HR) Succ 25 MG TAB.ER.24H PO SCH (08:24)
[2022-01-06] MEDS: Megestrol Acetate 400 MG/10 ML UDC PO SCH ×2 (08:24→20:34)
[2022-01-06] MEDS: levoFLOXacin 500 MG/100 ML 500 MG/100 ML BAG IVPB SCH (15:07)
[2022-01-07] MEDS: Ipratropium/Albuterol Neb 3 ML IH SCH ×7 (00:10→23:35)
[2022-01-07 07:44] LABS: Basophils % 0.1 %; Hematocrit 39.1 % (35.3-44.9); Immature Granulocytes % 0.4 % (0-4); Lymphocytes # 0.7 K/mcL (0.6-4.6); Lymphocytes % 3.7 %; Mean Corpuscular HGB Conc 30.7 g/dL (31.6-35.5); Mean Corpuscular Hemoglobin 31.5 pg (28.0-33.3); Mean Corpuscular Volume 102.6 fL (83.0-100.0); Mean Platelet Volume 9.6 fL (9.4-12.4); Monocytes # 1.1 K/mcL (0.0-1.3); Monocytes % 5.9 %; Neutrophils # 16.4 K/mcL (1.6-8.9); Platelet Count 206 K/mcL (140-400); Red Blood Count 3.81 M/mcL (3.82-4.97); Red Cell Distribution Width 13.5 % (11.5-14.5); Segmented Neutrophils % 89.9 %; White Blood Count 18.2 K/mcL (4.3-11.1)
[2022-01-07] MEDS: Budesonide/Formoterol 160/4.5 1 PUFF INH IH SCH ×2 (07:54→19:57)
[2022-01-07 09:08] LABS: BUN/Creatinine Ratio 33 (6-26); Blood Urea Nitrogen 14 mg/dL (6-20); Calcium 9.2 mg/dL (8.6-10.3); Carbon Dioxide 35 mEq/L (23-29); Chloride 98 mEq/L (98-107); Glucose 105 mg/dL (70-105); Osmolality,Calculated 285 (280-300); Potassium 4.4 mEq/L (3.5-5.1); Sodium 137 mEq/L (136-145); eGFR For African Americans > 60 (> 60); eGFR For Non-African Americans > 60 (> 60)
[2022-01-07] MEDS: Megestrol Acetate 400 MG/10 ML UDC PO SCH ×2 (09:18→21:49)
[2022-01-07] MEDS: MethylPREDNISolone 40 MG/ML VIAL IVP SCH ×2 (09:19→21:50)
[2022-01-07] MEDS: Metoprolol XL (24 HR) Succ 25 MG TAB.ER.24H PO SCH (09:19)
[2022-01-07] MEDS: levoFLOXacin 500 MG/100 ML 500 MG/100 ML BAG IVPB SCH (15:44)
[2022-01-07] MEDS: Melatonin 3 MG TABLET PO PRN (21:49)
[2022-01-08] MEDS: Ipratropium/Albuterol Neb 3 ML IH SCH ×5 (03:32→20:39)
[2022-01-08 07:10] LABS: Hemoglobin 12.1 g/dL (11.5-15.4); Mean Corpuscular Hemoglobin 31.7 pg (28.0-33.3); Mean Corpuscular Volume 102.1 fL (83.0-100.0); Mean Platelet Volume 10.1 fL (9.4-12.4); Platelet Count 202 K/mcL (140-400); Red Blood Count 3.82 M/mcL (3.82-4.97); Red Cell Distribution Width 13.4 % (11.5-14.5); White Blood Count 14.6 K/mcL (4.3-11.1)
[2022-01-08] MEDS: Budesonide/Formoterol 160/4.5 1 PUFF INH IH SCH ×2 (07:42→20:39)
[2022-01-08] MEDS ORDERED: GuaiFENesin/Dextromethorphan TABLET PO PRN (07:50)
[2022-01-08] MEDS: Megestrol Acetate 400 MG/10 ML UDC PO SCH ×2 (07:56→21:08)
[2022-01-08] MEDS: *HR* Enoxaparin 40 MG/0.4 ML SYRINGE SQ SCH (07:56)
[2022-01-08] MEDS: MethylPREDNISolone 40 MG/ML VIAL IVP SCH ×2 (07:57→21:09)
[2022-01-08] MEDS: Metoprolol XL (24 HR) Succ 25 MG TAB.ER.24H PO SCH (07:57)
[2022-01-08 08:07] LABS: BUN/Creatinine Ratio 36 (6-26); Blood Urea Nitrogen 16 mg/dL (6-20); Calcium 9.3 mg/dL (8.6-10.3); Carbon Dioxide 39 mEq/L (23-29); Chloride 97 mEq/L (98-107); Glucose 114 mg/dL (70-105); Osmolality,Calculated 290 (280-300); Potassium 4.5 mEq/L (3.5-5.1); Sodium 139 mEq/L (136-145); eGFR For African Americans > 60 (> 60); eGFR For Non-African Americans > 60 (> 60)
[2022-01-08] MEDS ORDERED: Azithromycin 250 MG TABLET PO SCH (09:00)
[2022-01-08 13:00] LABS: ABG Base Excess 7 mEq/L (-2 to 3); ABG HCO3 35 mEq/L (21-27); ABG Oxygen Saturation 90 % (95-98); ABG PCO2 59 mmHg (35-45); ABG PH 7.38 pH Units (7.32-7.45); ABG PO2 61 mmHg (85-104); ABG TCO2 36 mEq/L (20-26)
[2022-01-08] MEDS: Melatonin 3 MG TABLET PO PRN (21:08)
[2022-01-09] MEDS: Ipratropium/Albuterol Neb 3 ML IH SCH ×6 (00:23→21:15)
[2022-01-09] MEDS: *HR* Enoxaparin 40 MG/0.4 ML SYRINGE SQ SCH (07:51)
[2022-01-09] MEDS: MethylPREDNISolone 40 MG/ML VIAL IVP SCH ×2 (08:58→20:49)
[2022-01-09] MEDS: Megestrol Acetate 400 MG/10 ML UDC PO SCH ×2 (08:58→20:48)
[2022-01-09] MEDS: Metoprolol XL (24 HR) Succ 25 MG TAB.ER.24H PO SCH (08:58)
[2022-01-09] MEDS: Budesonide/Formoterol 160/4.5 1 PUFF INH IH SCH ×2 (09:18→21:14)
[2022-01-09] MEDS: Melatonin 3 MG TABLET PO PRN (20:49)
[2022-01-10] MEDS: Ipratropium/Albuterol Neb 3 ML IH SCH ×4 (01:10→11:05)
[2022-01-10 07:40] VITALS: RESP 18
[2022-01-10] MEDS ORDERED: predniSONE 20 MG TABLET PO SCH (08:00)
[2022-01-10] MEDS: *HR* Enoxaparin 40 MG/0.4 ML SYRINGE SQ SCH (08:12)
[2022-01-10] MEDS: Megestrol Acetate 400 MG/10 ML UDC PO SCH (08:13)
[2022-01-10] MEDS: Metoprolol XL (24 HR) Succ 25 MG TAB.ER.24H PO SCH (08:13)
[2022-01-10] MEDS: Budesonide/Formoterol 160/4.5 1 PUFF INH IH SCH (09:00)
[2022-01-10 10:55] VITALS: BP 95/65; PULSE 95; TEMP 98.5
[2022-01-10 11:10] VITALS: O2SAT 93
== END 2022-01-10 15:31 | disposition home health service (06) | DRG 140 ==
LOC: INPPIK
PROVIDERS: ADMIT Family Medicine; ATTEND Family Medicine

== ENCOUNTER 2022-01-18 01:23 | Observation (INO) ==
[2022-01-18] MEDS ORDERED: Ipratropium/Albuterol Neb 3 ML IH ONE ×3 (01:36→11:57)
[2022-01-18] MEDS ORDERED: methylPREDNISolone 125 MG/2 ML VIAL IVP ONE ×2 (01:37→08:00)
[2022-01-18 02:00] LABS: Basophils # 0.1 K/mcL (0.0-0.2); Basophils % 0.4 %; Eosinophils # 0.3 K/mcL (0.0-0.6); Hematocrit 49.2 % (35.3-44.9); Hemoglobin 15.7 g/dL (11.5-15.4); Immature Granulocytes % 1.3 % (0-4); Lymphocytes # 2.2 K/mcL (0.6-4.6); Lymphocytes % 16.3 %; Mean Corpuscular HGB Conc 31.9 g/dL (31.6-35.5); Mean Corpuscular Hemoglobin 31.7 pg (28.0-33.3); Mean Corpuscular Volume 99.4 fL (83.0-100.0); Mean Platelet Volume 9.7 fL (9.4-12.4); Monocytes # 1.6 K/mcL (0.0-1.3); Monocytes % 11.9 %; Neutrophils # 9.3 K/mcL (1.6-8.9); Platelet Count 281 K/mcL (140-400); Red Blood Count 4.95 M/mcL (3.82-4.97); Red Cell Distribution Width 15.5 % (11.5-14.5); Segmented Neutrophils % 68.1 %; White Blood Count 13.6 K/mcL (4.3-11.1)
[2022-01-18 02:13] LABS: Alanine Aminotransferase 40 Units/L (7-52); Albumin 4.3 g/dL (3.5-5.7); Albumin/Globulin Ratio 1.8 (1.1-2.2); Alkaline Phosphatase 57 Units/L (34-104); Aspartate Amino Transferase 17 Units/L (13-39); BUN/Creatinine Ratio 32 (6-26); Bilirubin,Total 0.5 mg/dL (0.3-1.0); Blood Urea Nitrogen 16 mg/dL (6-20); Calcium 9.5 mg/dL (8.6-10.3); Carbon Dioxide 39 mEq/L (23-29); Chloride 98 mEq/L (98-107); Globulin 2.4 g/dL (2.4-3.5); Glucose 102 mg/dL (70-105); Osmolality,Calculated 297 (280-300); Potassium 3.9 mEq/L (3.5-5.1); Sodium 143 mEq/L (136-145); Total Protein 6.7 g/dL (6.4-8.9); eGFR For African Americans > 60 (> 60); eGFR For Non-African Americans > 60 (> 60)
[2022-01-18] MEDS ORDERED: 0.9 % Sodium Chloride 1,000 ML IVC ONE (02:26)
[2022-01-18] MEDS: 0.9 % Sodium Chloride 1,000 ML IVC SCH (05:15)
[2022-01-18] MEDS ORDERED: Naloxone 0.4 MG/ML INJ IVP PRN (12:49)
[2022-01-18] MEDS ORDERED: Benzonatate 100 MG CAPSULE PO PRN (12:50)
[2022-01-18] MEDS ORDERED: hydrOXYzine pamoate 25 MG CAPSULE PO PRN (12:50)
[2022-01-18] MEDS ORDERED: Perflutren Lipid Microsphere 1.3 ML in 0.9 % Sodium Chloride 8.7 ML IVP PRN (13:57)
[2022-01-18] MEDS: Ipratropium/Albuterol Neb 3 ML IH PRN (18:04)
[2022-01-18] MEDS: Budesonide/Formoterol 160/4.5 1 PUFF INH IH SCH (20:13)
[2022-01-18] MEDS: MethylPREDNISolone 40 MG/ML VIAL IVP SCH (23:10)
[2022-01-19] MEDS: Ipratropium/Albuterol Neb 3 ML IH PRN (00:17)
[2022-01-19 07:16] LABS: Alanine Aminotransferase 35 Units/L (7-52); Albumin 3.4 g/dL (3.5-5.7); Albumin/Globulin Ratio 1.8 (1.1-2.2); Alkaline Phosphatase 50 Units/L (34-104); Aspartate Amino Transferase 16 Units/L (13-39); BUN/Creatinine Ratio 34 (6-26); Bilirubin,Total 0.4 mg/dL (0.3-1.0); Blood Urea Nitrogen 14 mg/dL (6-20); Calcium 8.7 mg/dL (8.6-10.3); Carbon Dioxide 33 mEq/L (23-29); Chloride 106 mEq/L (98-107); Globulin 1.9 g/dL (2.4-3.5); Glucose 134 mg/dL (70-105); Magnesium 2.1 mg/dL (1.6-2.6); Osmolality,Calculated 296 (280-300); Potassium 4.7 mEq/L (3.5-5.1); Sodium 142 mEq/L (136-145); Total Protein 5.3 g/dL (6.4-8.9); eGFR For African Americans > 60 (> 60); eGFR For Non-African Americans > 60 (> 60)
[2022-01-19] MEDS: Tiotropium 10 INH DOSE IH SCH (07:49)
[2022-01-19] MEDS: Budesonide/Formoterol 160/4.5 1 PUFF INH IH SCH ×2 (07:50→20:01)
[2022-01-19] MEDS: Metoprolol XL (24 HR) Succ 25 MG TAB.ER.24H PO SCH (08:03)
[2022-01-19] MEDS ORDERED: 0.9 % Sodium Chloride 1,000 ML IVC SCH (08:15)
[2022-01-19] MEDS: MethylPREDNISolone 40 MG/ML VIAL IVP SCH ×3 (08:34→23:29)
[2022-01-19] MEDS ORDERED: predniSONE 10 MG TABLET PO SCH (09:00)
[2022-01-19] MEDS ORDERED: Azithromycin 250 MG TABLET PO SCH (09:00)
[2022-01-19 11:11] LABS: Basophils % 0.1 %; Hematocrit 40.5 % (35.3-44.9); Hemoglobin 12.6 g/dL (11.5-15.4); Immature Granulocytes % 0.6 % (0-4); Lymphocytes # 0.4 K/mcL (0.6-4.6); Mean Corpuscular HGB Conc 31.1 g/dL (31.6-35.5); Mean Corpuscular Hemoglobin 31.7 pg (28.0-33.3); Mean Corpuscular Volume 101.8 fL (83.0-100.0); Mean Platelet Volume 9.6 fL (9.4-12.4); Monocytes # 0.9 K/mcL (0.0-1.3); Monocytes % 4.7 %; Platelet Count 219 K/mcL (140-400); Red Blood Count 3.98 M/mcL (3.82-4.97); Red Cell Distribution Width 15.4 % (11.5-14.5); Segmented Neutrophils % 92.6 %; White Blood Count 18.2 K/mcL (4.3-11.1)
[2022-01-19 11:12] LABS: Neutrophils # 16.9 K/mcL (1.6-8.9)
[2022-01-19] MEDS: Albuterol 2.5 MG/3 ML NEBULIZER IH PRN ×2 (13:32→20:01)
[2022-01-19] MEDS: Simethicone 80 MG TAB.CHEW PO PRN (17:52)
[2022-01-19] MEDS: 0.9 % Sodium Chloride 1,000 ML IVC SCH (21:08)
[2022-01-20] MEDS: Albuterol 2.5 MG/3 ML NEBULIZER IH PRN ×4 (03:17→22:07)
[2022-01-20 07:22] LABS: Basophils % 0.1 %; Hematocrit 40.3 % (35.3-44.9); Hemoglobin 12.6 g/dL (11.5-15.4); Immature Granulocytes % 0.7 % (0-4); Lymphocytes # 0.4 K/mcL (0.6-4.6); Lymphocytes % 2.3 %; Mean Corpuscular HGB Conc 31.3 g/dL (31.6-35.5); Mean Corpuscular Hemoglobin 31.6 pg (28.0-33.3); Monocytes % 6.1 %; Neutrophils # 15.3 K/mcL (1.6-8.9); Platelet Count 214 K/mcL (140-400); Red Blood Count 3.99 M/mcL (3.82-4.97); Segmented Neutrophils % 90.8 %; White Blood Count 16.8 K/mcL (4.3-11.1)
[2022-01-20 08:12] LABS: BUN/Creatinine Ratio 36 (6-26); Blood Urea Nitrogen 14 mg/dL (6-20); Calcium 8.9 mg/dL (8.6-10.3); Carbon Dioxide 36 mEq/L (23-29); Chloride 99 mEq/L (98-107); Glucose 109 mg/dL (70-105); Osmolality,Calculated 285 (280-300); Potassium 4.4 mEq/L (3.5-5.1); Sodium 137 mEq/L (136-145); eGFR For African Americans > 60 (> 60); eGFR For Non-African Americans > 60 (> 60)
[2022-01-20] MEDS: Budesonide/Formoterol 160/4.5 1 PUFF INH IH SCH ×2 (09:46→22:03)
[2022-01-20] MEDS: Tiotropium 10 INH DOSE IH SCH (09:46)
[2022-01-20] MEDS: MethylPREDNISolone 40 MG/ML VIAL IVP SCH ×3 (10:05→23:19)
[2022-01-20] MEDS: Metoprolol XL (24 HR) Succ 25 MG TAB.ER.24H PO SCH (10:07)
[2022-01-20] MEDS ORDERED: Albuterol 2.5 MG/3 ML NEBULIZER IH ONE (11:51)
[2022-01-20] MEDS: Simethicone 80 MG TAB.CHEW PO PRN (17:43)
[2022-01-21] MEDS: Simethicone 80 MG TAB.CHEW PO PRN (05:44)
[2022-01-21] MEDS ORDERED: *HR* Enoxaparin 40 MG/0.4 ML SYRINGE SQ SCH (06:00)
[2022-01-21 07:30] VITALS: BP 120/82; PULSE 85; TEMP 98
[2022-01-21] MEDS: MethylPREDNISolone 40 MG/ML VIAL IVP SCH (07:44)
[2022-01-21] MEDS: Metoprolol XL (24 HR) Succ 25 MG TAB.ER.24H PO SCH (07:46)
[2022-01-21] MEDS: Ipratropium/Albuterol Neb 3 ML IH SCH ×2 (07:56→11:03)
[2022-01-21] MEDS: Budesonide/Formoterol 160/4.5 1 PUFF INH IH SCH (07:58)
[2022-01-21 08:16] LABS: Basophils % 0.1 %; Eosinophils % 0.1 %; Hematocrit 43.5 % (35.3-44.9); Hemoglobin 13.6 g/dL (11.5-15.4); Immature Granulocytes % 0.6 % (0-4); Lymphocytes # 0.6 K/mcL (0.6-4.6); Lymphocytes % 3.7 %; Mean Corpuscular HGB Conc 31.3 g/dL (31.6-35.5); Mean Corpuscular Hemoglobin 31.9 pg (28.0-33.3); Mean Corpuscular Volume 101.9 fL (83.0-100.0); Mean Platelet Volume 10.1 fL (9.4-12.4); Monocytes # 1.2 K/mcL (0.0-1.3); Monocytes % 7.8 %; Neutrophils # 13.6 K/mcL (1.6-8.9); Platelet Count 237 K/mcL (140-400); Red Blood Count 4.27 M/mcL (3.82-4.97); Red Cell Distribution Width 14.7 % (11.5-14.5); Segmented Neutrophils % 87.7 %; White Blood Count 15.5 K/mcL (4.3-11.1)
[2022-01-21 08:28] LABS: BUN/Creatinine Ratio 42 (6-26); Blood Urea Nitrogen 16 mg/dL (6-20); Calcium 9.3 mg/dL (8.6-10.3); Carbon Dioxide 36 mEq/L (23-29); Chloride 99 mEq/L (98-107); Glucose 98 mg/dL (70-105); Osmolality,Calculated 289 (280-300); Potassium 4.6 mEq/L (3.5-5.1); Sodium 139 mEq/L (136-145); eGFR For African Americans > 60 (> 60); eGFR For Non-African Americans > 60 (> 60)
[2022-01-21 11:05] VITALS: RESP 8; O2SAT 92
== END 2022-01-21 14:45 | disposition home or self-care (01) ==
LOC: INPPIK 01:23 → EMEROOPIK 01:23 → INPPIK 15:39
PROVIDERS: ADMIT Family Medicine; ATTEND Family Medicine

== ENCOUNTER 2022-04-03 00:32 | Inpatient (IN) ==
[2022-04-03] MEDS ORDERED: Ipratropium/Albuterol Neb 3 ML IH ONE (00:38)
[2022-04-03] MEDS ORDERED: methylPREDNISolone 125 MG/2 ML VIAL IVP STA (00:40)
[2022-04-03] MEDS ORDERED: levoFLOXacin 500 MG/100 ML 500 MG/100 ML BAG IVPB ONE (00:46)
[2022-04-03 01:10] LABS: ABG Base Excess 6 mEq/L (-2 to 3); ABG HCO3 36 mEq/L (21-27); ABG Oxygen Saturation 98 % (95-98); ABG PCO2 79 mmHg (35-45); ABG PH 7.27 pH Units (7.32-7.45); ABG PO2 133 mmHg (85-104); ABG TCO2 39 mEq/L (20-26)
[2022-04-03 01:24] LABS: Basophils # 0.1 K/mcL (0.0-0.2); Basophils % 0.7 %; Eosinophils # 0.2 K/mcL (0.0-0.6); Hematocrit 42.6 % (35.3-44.9); Hemoglobin 13.1 g/dL (11.5-15.4); Immature Granulocytes % 0.3 % (0-4); Lymphocytes # 1.6 K/mcL (0.6-4.6); Lymphocytes % 17.2 %; Mean Corpuscular HGB Conc 30.8 g/dL (31.6-35.5); Mean Corpuscular Volume 103.9 fL (83.0-100.0); Mean Platelet Volume 10.1 fL (9.4-12.4); Monocytes # 0.9 K/mcL (0.0-1.3); Monocytes % 9.7 %; Neutrophils # 6.4 K/mcL (1.6-8.9); Platelet Count 225 K/mcL (140-400); Red Cell Distribution Width 13.2 % (11.5-14.5); Segmented Neutrophils % 70.1 %; White Blood Count 9.1 K/mcL (4.3-11.1)
[2022-04-03 01:40] LABS: Troponin I < 0.03 ng/mL (< 0.04)
[2022-04-03 01:41] LABS: BUN/Creatinine Ratio 33 (6-26); Blood Urea Nitrogen 14 mg/dL (6-20); Calcium 9.5 mg/dL (8.6-10.3); Carbon Dioxide 37 mEq/L (23-29); Chloride 103 mEq/L (98-107); Glucose 101 mg/dL (70-105); Osmolality,Calculated 301 (280-300); Sodium 145 mEq/L (136-145)
[2022-04-03] MEDS ORDERED: cefTRIAXone 1,000 MG in 0.9 % Sodium Chloride Mini Bag 100 ML IVPB ONE (02:02)
[2022-04-03 02:43] LABS: ABG Base Excess 5 mEq/L (-2 to 3); ABG HCO3 34 mEq/L (21-27); ABG Oxygen Saturation 93 % (95-98); ABG PCO2 67 mmHg (35-45); ABG PH 7.31 pH Units (7.32-7.45); ABG PO2 76 mmHg (85-104); ABG TCO2 36 mEq/L (20-26)
[2022-04-03] MEDS ORDERED: Albuterol 2.5 MG/3 ML NEBULIZER IH PRN (03:37)
[2022-04-03] MEDS ORDERED: Ondansetron ODT 4 MG TAB.RAPDIS SL PRN (03:37)
[2022-04-03] MEDS ORDERED: MOM Conc 10 ML UD.LIQ PO PRN (03:37)
[2022-04-03] MEDS ORDERED: Naloxone 0.4 MG/ML INJ IVP PRN (03:37)
[2022-04-03] MEDS ORDERED: Mag Hydrox/Al Hydrox/Simeth 30 ML UDC PO PRN (03:37)
[2022-04-03] MEDS: Ipratropium/Albuterol Neb 3 ML IH SCH ×4 (04:56→22:07)
[2022-04-03] MEDS ORDERED: Ipratropium/Albuterol Neb 3 ML IH SCH ×2 (06:00)
[2022-04-03] MEDS: MethylPREDNISolone 40 MG/ML VIAL IVP SCH ×2 (08:16→20:29)
[2022-04-03] MEDS ORDERED: Benzonatate 100 MG CAPSULE PO PRN (09:00)
[2022-04-03] MEDS ORDERED: Metoprolol XL (24 HR) Succ 25 MG TAB.ER.24H PO SCH ×2 (09:00)
[2022-04-03] MEDS ORDERED: MethylPREDNISolone 40 MG/ML VIAL IVP SCH ×2 (14:00)
[2022-04-03] MEDS ORDERED: MethylPREDNISolone 40 MG/ML VIAL ONE (18:55)
[2022-04-03] MEDS: Metoprolol XL (24 HR) Succ 25 MG TAB.ER.24H PO SCH (21:47)
[2022-04-03] MEDS: hydrOXYzine pamoate 25 MG CAPSULE PO PRN (21:50)
[2022-04-04] MEDS: MethylPREDNISolone 40 MG/ML VIAL IVP SCH ×3 (00:58→16:16)
[2022-04-04] MEDS: Ipratropium/Albuterol Neb 3 ML IH SCH ×2 (04:14→08:31)
[2022-04-04] MEDS: *HR* Enoxaparin 40 MG/0.4 ML SYRINGE SQ SCH (05:15)
[2022-04-04 07:21] LABS: Basophils % 0.2 %; Hematocrit 40.2 % (35.3-44.9); Hemoglobin 12.4 g/dL (11.5-15.4); Immature Granulocytes % 0.4 % (0-4); Lymphocytes # 0.7 K/mcL (0.6-4.6); Lymphocytes % 6.2 %; Mean Corpuscular HGB Conc 30.8 g/dL (31.6-35.5); Mean Corpuscular Volume 103.6 fL (83.0-100.0); Mean Platelet Volume 10.4 fL (9.4-12.4); Monocytes # 0.5 K/mcL (0.0-1.3); Monocytes % 4.8 %; Neutrophils # 9.3 K/mcL (1.6-8.9); Platelet Count 206 K/mcL (140-400); Red Blood Count 3.88 M/mcL (3.82-4.97); Red Cell Distribution Width 13.2 % (11.5-14.5); Segmented Neutrophils % 88.4 %; White Blood Count 10.5 K/mcL (4.3-11.1)
[2022-04-04 07:37] LABS: BUN/Creatinine Ratio 30 (6-26); Blood Urea Nitrogen 13 mg/dL (6-20); Calcium 9.7 mg/dL (8.6-10.3); Carbon Dioxide 33 mEq/L (23-29); Chloride 103 mEq/L (98-107); Glucose 122 mg/dL (70-105); Magnesium 1.9 mg/dL (1.6-2.6); Osmolality,Calculated 291 (280-300); Potassium 4.8 mEq/L (3.5-5.1); Sodium 140 mEq/L (136-145)
[2022-04-04] MEDS ORDERED: Azithromycin 250 MG TABLET PO SCH (09:00)
[2022-04-04] MEDS: Budesonide/Formoterol 160/4.5 1 PUFF INH IH SCH ×2 (09:13→21:12)
[2022-04-04] MEDS: Metoprolol XL (24 HR) Succ 25 MG TAB.ER.24H PO SCH ×2 (10:30→20:27)
[2022-04-04] MEDS: Levalbuterol Neb 1.25 MG/3 ML IH SCH ×2 (16:25→21:12)
[2022-04-04] MEDS ORDERED: Aspirin 81 MG TAB.CHEW PO ONE (17:42)
[2022-04-04] MEDS ORDERED: GI Cocktail 40 ML EACH PO ONE (17:52)
[2022-04-04] MEDS: hydrOXYzine pamoate 25 MG CAPSULE PO PRN (20:26)
[2022-04-04] MEDS: Melatonin 3 MG TABLET PO PRN (20:27)
[2022-04-05] MEDS: MethylPREDNISolone 40 MG/ML VIAL IVP SCH ×3 (00:31→21:37)
[2022-04-05] MEDS: Levalbuterol Neb 1.25 MG/3 ML IH SCH ×4 (04:13→21:10)
[2022-04-05] MEDS: *HR* Enoxaparin 40 MG/0.4 ML SYRINGE SQ SCH (06:39)
[2022-04-05 07:29] LABS: Basophils % 0.2 %; Hematocrit 38.3 % (35.3-44.9); Hemoglobin 11.8 g/dL (11.5-15.4); Immature Granulocytes % 0.4 % (0-4); Lymphocytes # 0.5 K/mcL (0.6-4.6); Lymphocytes % 3.6 %; Mean Corpuscular HGB Conc 30.8 g/dL (31.6-35.5); Mean Corpuscular Volume 103.8 fL (83.0-100.0); Mean Platelet Volume 10.4 fL (9.4-12.4); Monocytes % 6.9 %; Neutrophils # 12.7 K/mcL (1.6-8.9); Platelet Count 171 K/mcL (140-400); Red Blood Count 3.69 M/mcL (3.82-4.97); Red Cell Distribution Width 13.3 % (11.5-14.5); Segmented Neutrophils % 88.9 %; White Blood Count 14.3 K/mcL (4.3-11.1)
[2022-04-05 07:58] LABS: BUN/Creatinine Ratio 49 (6-26); Blood Urea Nitrogen 19 mg/dL (6-20); Calcium 8.9 mg/dL (8.6-10.3); Carbon Dioxide 34 mEq/L (23-29); Chloride 104 mEq/L (98-107); Glucose 111 mg/dL (70-105); Magnesium 2.1 mg/dL (1.6-2.6); Osmolality,Calculated 297 (280-300); Potassium 4.4 mEq/L (3.5-5.1); Sodium 142 mEq/L (136-145)
[2022-04-05] MEDS: Budesonide/Formoterol 160/4.5 1 PUFF INH IH SCH ×2 (08:59→21:10)
[2022-04-05] MEDS: Aspirin 81 MG TAB.CHEW PO SCH (10:50)
[2022-04-05] MEDS: Metoprolol XL (24 HR) Succ 25 MG TAB.ER.24H PO SCH ×2 (10:51→21:00)
[2022-04-05] MEDS: hydrOXYzine pamoate 25 MG CAPSULE PO PRN (21:01)
[2022-04-05] MEDS: Melatonin 3 MG TABLET PO PRN (21:01)
[2022-04-05] MEDS: GuaiFENesin/Codeine Oral Soln 5 ML UDC PO PRN (21:01)
[2022-04-06] MEDS: Levalbuterol Neb 1.25 MG/3 ML IH SCH ×2 (04:11→08:56)
[2022-04-06] MEDS ORDERED: *HR* Enoxaparin 30 MG/0.3 ML SYRINGE SQ SCH (06:00)
[2022-04-06 06:20] LABS: Basophils % 0.1 %; Eosinophils % 0.1 %; Hematocrit 40.2 % (35.3-44.9); Hemoglobin 12.3 g/dL (11.5-15.4); Immature Granulocytes % 0.4 % (0-4); Lymphocytes # 0.7 K/mcL (0.6-4.6); Lymphocytes % 7.1 %; Mean Corpuscular HGB Conc 30.6 g/dL (31.6-35.5); Mean Corpuscular Hemoglobin 31.8 pg (28.0-33.3); Mean Corpuscular Volume 103.9 fL (83.0-100.0); Mean Platelet Volume 10.9 fL (9.4-12.4); Monocytes # 0.8 K/mcL (0.0-1.3); Monocytes % 7.9 %; Neutrophils # 8.1 K/mcL (1.6-8.9); Platelet Count 180 K/mcL (140-400); Red Blood Count 3.87 M/mcL (3.82-4.97); Red Cell Distribution Width 13.5 % (11.5-14.5); Segmented Neutrophils % 84.4 %; White Blood Count 9.6 K/mcL (4.3-11.1)
[2022-04-06 06:43] LABS: BUN/Creatinine Ratio 36 (6-26); Blood Urea Nitrogen 14 mg/dL (6-20); Calcium 9.1 mg/dL (8.6-10.3); Carbon Dioxide 34 mEq/L (23-29); Chloride 102 mEq/L (98-107); Glucose 102 mg/dL (70-105); Magnesium 1.9 mg/dL (1.6-2.6); Osmolality,Calculated 293 (280-300); Potassium 4.5 mEq/L (3.5-5.1); Sodium 141 mEq/L (136-145)
[2022-04-06] MEDS: Budesonide/Formoterol 160/4.5 1 PUFF INH IH SCH (08:56)
[2022-04-06 09:05] VITALS: O2SAT 93
[2022-04-06] MEDS: MethylPREDNISolone 40 MG/ML VIAL IVP SCH (09:46)
[2022-04-06] MEDS: Aspirin 81 MG TAB.CHEW PO SCH (09:48)
[2022-04-06] MEDS: Metoprolol XL (24 HR) Succ 25 MG TAB.ER.24H PO SCH (09:48)
[2022-04-06] MEDS: GuaiFENesin/Codeine Oral Soln 5 ML UDC PO PRN (09:55)
[2022-04-06 11:01] VITALS: BP 94/65; PULSE 95; RESP 17; TEMP 98.7
== END 2022-04-06 12:50 | disposition home or self-care (01) | DRG 133 ==
LOC: INPPIK 00:32 → EMEROOPIK 00:32 → SUATTDRO 03:04 → INPPIK 03:25
PROVIDERS: ADMIT Internal Medicine; ATTEND Nurse Practitioner